=== PATIENT | male | born 1930 | race Asian ===

== ENCOUNTER 2016-07-03 03:57 | Inpatient (IN) | payer MEDICARE ==
[~2016-07-03] VITALS: Ht 165.1 cm; Wt 73.2 kg
[~2016-07-03 03:57] MED LIST: ALLO100T PO; AMLO10TA55 PO; ASPI81TA2 PO; FAMO40TA76 PO; FURO20TA4 PO; HYDR-3112 PO; ISOS30TA6 PO; METO50TA5 PO; SIMV20TA6 PO
[2016-07-03] MEDS ORDERED: MIDAZOLAM HCL 2 MG/2 ML VIAL IVP ONE (04:41)
[2016-07-03] MEDS ORDERED: ROCURONIUM BROMIDE 10 MG/ML 5 ML VIAL IVP ONE (04:41)
[2016-07-03] MEDS ORDERED: PHENYLEPHRINE HCL 10 MG/ML VIAL IVP ONE (04:41)
[2016-07-03] MEDS ORDERED: LIDOCAINE HCL/PF 2% 5 ML VIAL IM ONE (04:41)
[2016-07-03] MEDS ORDERED: EPHEDrine SULFATE 50 MG/ML VIAL IM ONE (04:41)
[2016-07-03] MEDS ORDERED: 0.9% SODIUM CHLORIDE 10 ML VIAL IVP ONE (04:41)
[2016-07-03] MEDS ORDERED: FentaNYL CITRATE-PF 100 MCG/2 ML VIAL IVP ONE (04:41)
[2016-07-03] MEDS ORDERED: SUCCINYLCHOLINE CHLORIDE 20 MG/ML 10 ML VIAL IVP ONE (04:41)
[2016-07-03] MEDS ORDERED: ETOMIDATE 2 MG/ML 10 ML VIAL IVP ONE (04:41)
[2016-07-03] MEDS ORDERED: HYDROmorphone 2 MG/ML SYRINGE IVP ONE (04:41)
[2016-07-03] MEDS ORDERED: NITROGLYCERIN 0.4 MG SUBLINGUAL TABLET #25 SL ONE (04:45)
[2016-07-03] MEDS ORDERED: ASPIRIN 325 MG TABLET PO ONE (04:45)
[2016-07-03 04:50] LABS: BASOPHILS % (AUTO) 1.3 % (0.0-2.0); EOSINOPHILS % (AUTO) 0.2 % (1.0-6.0); HEMATOCRIT 34.7 % (41-53); HEMOGLOBIN 11.5 g/dL (13.5-17.5); LYMPHOCYTES # (AUTO) 0.7 K/uL (1.0-4.8); LYMPHOCYTES % (AUTO) 6.9 % (22.0-44.0); MEAN CORPUSCULAR HEMOGLOBIN 31.2 pg (26.0-34.0); MEAN CORPUSCULAR HGB CONC 33.1 G/dL (31.0-37.0); MEAN CORPUSCULAR VOLUME 94 fL (80-100); MONOCYTES # (AUTO) 0.2 K/uL (0.1-1.0); MONOCYTES % (AUTO) 1.7 % (2.0-9.0); NEUTROPHILS # (AUTO) 8.9 K/uL (1.8-7.7); PLATELET COUNT (AUTO) 146 K/uL (150-450); RED BLOOD CELL COUNT(AUTO) 3.69 MIL/uL (4.50-5.90); RED CELL DISTRIBUTION WIDTH 13.7 % (11.5-14.5); WHITE BLOOD COUNT (AUTO) 9.9 K/uL (4.5-11.0)
[2016-07-03 04:52] LABS: NEUTROPHILS % (AUTO) 89.9 % (40.0-70.0)
[2016-07-03 05:00] LABS: INR 1.1 (0.9-1.1); PROTHROMBIN TIME 11.4 SEC (9.4-11.6)
[2016-07-03 05:04] LABS: ANION GAP 16 mmol/L (8-16); CALCIUM, TOTAL 9.3 mg/dL (8.8-10.5); CARBON DIOXIDE 22 mmol/L (22-29); CHLORIDE 100 mmol/L (98-107); CREATININE 2.77 mg/dL (0.60-1.30); GLOMERULAR FILTR. RATE CALC 22 mL/min (>60); POTASSIUM 5.1 mmol/L (3.5-5.1); SODIUM SERUM 138 mmol/L (136-145); UREA NITROGEN, BLOOD 43 mg/dL (7-18)
[2016-07-03 05:16] LABS: B-TYPE NATRIURETIC PEPTIDE 304 pg/mL (0-100)
[2016-07-03 05:29] LABS: ALANINE AMINOTRANSFERASE 121 U/L (12-78); ALBUMIN 3.5 g/dL (3.4-5.0); ASPARTATE AMINOTRANSFERASE 149 U/L (15-37); CREATINE KINASE MB 3.5 ng/mL (0-5); CREATINE KINASE, TOTAL 231 U/L (39-308)
[2016-07-03] MEDS ORDERED: NITROGLYCERIN 2% (1 GM=INCH) PACKET TP ONE (05:45)
[2016-07-03] MEDS ORDERED: FUROSEMIDE 40 MG/4 ML VIAL IVP ONE (05:45)
[2016-07-03] MEDS: NOREPINEPHRINE 4 MG/D5%-WATER 250 ML IV PRN (06:40)
[2016-07-03] MEDS ORDERED: SODIUM CHLORIDE 0.9% 1,000 ML IV ONE ×3 (07:15→10:15)
[2016-07-03] MEDS ORDERED: PIPERACILLIN/TAZO 3.375 GM/D5W 50 ML IV ONE (07:15)
[2016-07-03] MEDS ORDERED: MetroNIDAZOLE 500 MG/NACL 100 ML IV ONE (07:15)
[2016-07-03 07:18] LABS: APPEARANCE,URINE CLOUDY (CLEAR); GLUCOSE, URINE (UA) NEGATIVE (NEGATIVE); KETONES,URINE NEGATIVE (NEGATIVE); LEUKOCYTE ESTERASE ,URINE NEGATIVE (NEGATIVE); OCCULT BLOOD,URINE SMALL (NEGATIVE); PH,URINE 5.5 (5.0-8.0); PROTEIN,URINE SEE CONFIRM (NEGATIVE)
[2016-07-03 07:20] LABS: ADD UA MICROSCOPIC YES
[2016-07-03 07:26] LABS: SQUAMOUS EPITHELIAL CELL,UR Few /LPF (None Seen); WBC,URINE 0-2 /HPF (0-5)
[2016-07-03 07:29] LABS: SULFOSALICYLIC ACID,URINE 3+ (Negative)
[2016-07-03] MEDS ORDERED: ONDANSETRON HCL 4 MG/2 ML VIAL IVP PRN (07:45)
[2016-07-03] MEDS ORDERED: MORPHINE SULFATE 4 MG/ML SYRINGE IVP PRN (07:45)
[2016-07-03 09:37] LABS: REFLEX LACTIC ACID? YES YES
[2016-07-03 13:20] VITALS: BP 145/72
[2016-07-03] MEDS ORDERED: *CLINICAL-RX DOSING [ENTER DRUG IN COMMENTS] CLINICAL ONE (13:45)
[2016-07-03 13:49] LABS: EOSINOPHILS % (AUTO) 0 % (1.0-6.0); HEMATOCRIT 38.5 % (41-53); HEMOGLOBIN 12.5 g/dL (13.5-17.5); LYMPHOCYTES # (AUTO) 0.2 K/uL (1.0-4.8); LYMPHOCYTES % (AUTO) 5.4 % (22.0-44.0); MEAN CORPUSCULAR HEMOGLOBIN 30.8 pg (26.0-34.0); MEAN CORPUSCULAR HGB CONC 32.4 G/dL (31.0-37.0); MEAN CORPUSCULAR VOLUME 95 fL (80-100); MONOCYTES # (AUTO) 0.1 K/uL (0.1-1.0); MONOCYTES % (AUTO) 2.6 % (2.0-9.0); PLATELET COUNT (AUTO) 125 K/uL (150-450); RED BLOOD CELL COUNT(AUTO) 4.04 MIL/uL (4.50-5.90); RED CELL DISTRIBUTION WIDTH 13.6 % (11.5-14.5); WHITE BLOOD COUNT (AUTO) 4.4 K/uL (4.5-11.0)
[2016-07-03 13:58] LABS: ABG A-A DIFF O2 39.8 mmHg (10-20.0); ABG BASE EXCESS -3.1 mmol/L (-2.0-3.0); ABG HCO3 22.8 mmol/L (22.0-26.0); ABG OXYHEMOGLOBIN 94.1 % (94.0-100.0); ABG PCO2 29 mmHg (35-45); ABG PH 7.464 (7.35-7.450); TEMPERATURE, FAHRENHEIT, BG 98.6 FAHREN (96.0-98.6)
[2016-07-03 13:59] LABS: CALCIUM, TOTAL 8.7 mg/dL (8.8-10.5); CREATININE 2.36 mg/dL (0.60-1.30); POTASSIUM 4.8 mmol/L (3.5-5.1)
[2016-07-03 13:59] LABS: ALLEN TEST, BLOOD GAS Positive
[2016-07-03 14:06] LABS: ALBUMIN 3.4 g/dL (3.4-5.0); BILIRUBIN,TOTAL 1.2 mg/dL (0.1-1.0); MAGNESIUM 2.4 mg/dL (1.80-2.40); PHOSPHORUS 4.8 mg/dL (2.5-4.9); TOTAL PROTEIN, SERUM 6.4 g/dL (6.4-8.2)
[2016-07-03] MEDS: MORPHINE SULFATE 2 MG/ML SYRINGE IVP PRN (15:01)
[2016-07-03] MEDS: PANTOPRAZOLE SODIUM 40 MG/VIAL IVP SCH (15:02)
[2016-07-03 16:00] VITALS: BP 151/75
[2016-07-03] MEDS: SODIUM CHLORIDE 0.9% 1,000 ML IV SCH (17:03)
[2016-07-03] MEDS: PIPERACILLIN SODIUM/TAZOBACTAM 2.25 GM in DEXTROSE 5%-WATER 50 ML IV SCH (17:19)
[2016-07-03] MEDS ORDERED: LORazepam 2 MG/ML VIAL IVP PRN (17:30)
[2016-07-03] MEDS: MetroNIDAZOLE 500 MG/NACL 100 ML IV SCH (17:45)
[2016-07-03 19:05] LABS: ABG A-A DIFF O2 85.2 mmHg (10-20.0); ABG BASE EXCESS -5.5 mmol/L (-2.0-3.0); ABG HCO3 21.1 mmol/L (22.0-26.0); ABG OXYHEMOGLOBIN 93.8 % (94.0-100.0); ABG PCO2 28 mmHg (35-45); ABG PH 7.434 (7.35-7.450); TEMPERATURE, FAHRENHEIT, BG 101.6 FAHREN (96.0-98.6)
[2016-07-03 19:06] LABS: ALLEN TEST, BLOOD GAS POS
[2016-07-03] MEDS ORDERED: ACETAMINOPHEN 650 MG RECTAL SUPPOSITORY PR PRN (19:30)
[2016-07-03 20:00] VITALS: BP 109/65
[2016-07-03] MEDS ORDERED: SODIUM CHLORIDE 0.9% 500 ML IV ONE (20:20)
[2016-07-03] MEDS ORDERED: 0.9% SODIUM CHLORIDE 10 ML SYRINGE IVP PRN (22:00)
[2016-07-03] MEDS: PHENYLEPHRINE 200 MG/D5%-WATER 250 ML IV PRN (23:30)
[2016-07-03] MEDS ORDERED: DOPamine HCL 400 MG/D5%-WATER 250 ML IV ONE (23:38)
[2016-07-03] MEDS ORDERED: EPINEPHrine 1:10,000 [1 MG/10 ML] SYRINGE ONE (23:39)
[2016-07-04] VITALS (10 sets, daily range): BP systolic 100–146; BP diastolic 38–53
[2016-07-04 00:10] LABS: BASOPHILS % (AUTO) 0.4 % (0.0-2.0); EOSINOPHILS % (AUTO) 0.1 % (1.0-6.0); HEMATOCRIT 33.1 % (41-53); HEMOGLOBIN 10.9 g/dL (13.5-17.5); LYMPHOCYTES # (AUTO) 0.4 K/uL (1.0-4.8); LYMPHOCYTES % (AUTO) 4.9 % (22.0-44.0); MEAN CORPUSCULAR HEMOGLOBIN 31.1 pg (26.0-34.0); MEAN CORPUSCULAR VOLUME 94 fL (80-100); MONOCYTES # (AUTO) 0.2 K/uL (0.1-1.0); MONOCYTES % (AUTO) 2.3 % (2.0-9.0); NEUTROPHILS # (AUTO) 6.8 K/uL (1.8-7.7); PLATELET COUNT (AUTO) 103 K/uL (150-450); RED CELL DISTRIBUTION WIDTH 14.2 % (11.5-14.5); WHITE BLOOD COUNT (AUTO) 7.4 K/uL (4.5-11.0)
[2016-07-04 00:11] LABS: NEUTROPHILS % (AUTO) 92.3 % (40.0-70.0)
[2016-07-04 00:15] LABS: CALCIUM, TOTAL 6.9 mg/dL (8.8-10.5); CREATININE 2.61 mg/dL (0.60-1.30); POTASSIUM 4.6 mmol/L (3.5-5.1)
[2016-07-04] MEDS: SODIUM CHLORIDE 0.9% 1,000 ML IV SCH ×2 (00:21→22:26)
[2016-07-04] MEDS: PIPERACILLIN SODIUM/TAZOBACTAM 2.25 GM in DEXTROSE 5%-WATER 50 ML IV SCH ×3 (00:21→15:58)
[2016-07-04 00:53] LABS: ABG A-A DIFF O2 345.6 mmHg (10-20.0); ABG BASE EXCESS -9.9 mmol/L (-2.0-3.0); ABG HCO3 17.1 mmol/L (22.0-26.0); ABG OXYHEMOGLOBIN 98.8 % (94.0-100.0); ABG PCO2 39 mmHg (35-45); ABG PH 7.264 (7.35-7.450); TEMPERATURE, FAHRENHEIT, BG 98.5 FAHREN (96.0-98.6)
[2016-07-04 00:54] LABS: ALLEN TEST, BLOOD GAS POS
[2016-07-04] MEDS: MetroNIDAZOLE 500 MG/NACL 100 ML IV SCH ×3 (01:19→17:28)
[2016-07-04] MEDS ORDERED: NOREPINEPHRINE 4 MG/D5%-WATER 250 ML IV PRN (01:32)
[2016-07-04] MEDS ORDERED: DOPamine HCL 400 MG/D5%-WATER 250 ML IV PRN (01:32)
[2016-07-04] MEDS ORDERED: PHENYLEPHRINE 200 MG/D5%-WATER 250 ML IV PRN (01:32)
[2016-07-04 05:29] LABS: HEMATOCRIT 34.9 % (41-53); HEMOGLOBIN 11.4 g/dL (13.5-17.5); MEAN CORPUSCULAR HEMOGLOBIN 31.1 pg (26.0-34.0); MEAN CORPUSCULAR HGB CONC 32.7 G/dL (31.0-37.0); MEAN CORPUSCULAR VOLUME 95 fL (80-100); PLATELET COUNT (AUTO) 107 K/uL (150-450); RED BLOOD CELL COUNT(AUTO) 3.67 MIL/uL (4.50-5.90); RED CELL DISTRIBUTION WIDTH 14.6 % (11.5-14.5); WHITE BLOOD COUNT (AUTO) 9.7 K/uL (4.5-11.0)
[2016-07-04 05:51] LABS: ALBUMIN 2.3 g/dL (3.4-5.0); CALCIUM, TOTAL 7.1 mg/dL (8.8-10.5); CREATININE 2.62 mg/dL (0.60-1.30); MAGNESIUM 2.2 mg/dL (1.80-2.40); PHOSPHORUS 5.9 mg/dL (2.5-4.9); POTASSIUM 5.4 mmol/L (3.5-5.1); THYROID STIMULATING HORMONE 3.76 uIU/mL (0.36-3.74); TOTAL PROTEIN, SERUM 4.9 g/dL (6.4-8.2)
[2016-07-04] MEDS: NOREPINEPHRINE 4 MG/D5%-WATER 250 ML IV PRN ×3 (07:36→21:14)
[2016-07-04] MEDS: ASPIRIN 81 MG CHEWABLE TABLET PO SCH (09:00)
[2016-07-04 09:29] LABS: LYMPHOCYTES % (MANUAL) 9 % (22-44); TOTAL CELLS COUNTED 100
[2016-07-04 09:31] LABS: BAND NEUTROPHILS % (MANUAL) 80 % (1-5)
[2016-07-04 09:32] LABS: RBC MORPHOLOGY COMMENT ABNORMAL RBC MORPH
[2016-07-04] MEDS: PANTOPRAZOLE SODIUM 40 MG/VIAL IVP SCH (09:38)
[2016-07-04] MEDS: MORPHINE SULFATE 4 MG/ML SYRINGE IVP PRN (09:39)
[2016-07-04 10:02] LABS: APPEARANCE,URINE CLOUDY (CLEAR); GLUCOSE, URINE (UA) NEGATIVE (NEGATIVE); OCCULT BLOOD,URINE LARGE (NEGATIVE); PROTEIN,URINE SEE CONFIRM (NEGATIVE)
[2016-07-04 10:03] LABS: ADD UA MICROSCOPIC YES; KETONES,URINE NEGATIVE (NEGATIVE); LEUKOCYTE ESTERASE ,URINE NEGATIVE (NEGATIVE)
[2016-07-04 10:09] LABS: RBC,URINE >100 /HPF (0-2); SULFOSALICYLIC ACID,URINE 3+ (Negative)
[2016-07-04 10:11] LABS: SQUAMOUS EPITHELIAL CELL,UR Rare /LPF (None Seen)
[2016-07-04 10:12] LABS: URINALYSIS COMMENT Few Sperm seen.
[2016-07-04 10:13] LABS: ABG A-A DIFF O2 112.8 mmHg (10-20.0); ABG BASE EXCESS -4.7 mmol/L (-2.0-3.0); ABG HCO3 21.4 mmol/L (22.0-26.0); ABG OXYHEMOGLOBIN 96.7 % (94.0-100.0); ABG PCO2 30 mmHg (35-45); ABG PH 7.428 (7.35-7.450); TEMPERATURE, FAHRENHEIT, BG 98.6 FAHREN (96.0-98.6)
[2016-07-04 10:15] LABS: COARSE GRANULAR CASTS,URINE 0-2 /LPF (None Seen); HYALINE CASTS, URINE 0-2 /LPF (None Seen)
[2016-07-04] MEDS ORDERED: HEPARIN SODIUM,PORCINE 5,000 UNITS/ML VIAL IVP ONE (17:30)
[2016-07-04] MEDS ORDERED: HEPARIN SODIUM,PORCINE 5,000 UNITS/ML VIAL IVP PRN ×2 (17:30)
[2016-07-04 17:53] LABS: INR 1.5 (0.9-1.1); PROTHROMBIN TIME 15.9 SEC (9.4-11.6)
[2016-07-04] MEDS: HEPARIN SODIUM 25000 UNITS/D5W 250 ML IV PRN (18:23)
[2016-07-04] MEDS ORDERED: INFLUENZA VIRUS VACCINE QVS 2016-17 (3YR+)/PF 60 MCG/0.5 ML SYRINGE IM ONE (19:30)
[2016-07-04] MEDS: ATORVASTATIN CALCIUM 10 MG TABLET PO SCH (21:00)
[2016-07-04] MEDS: PROPOFOL 1000 MG/ISO-OSM 100 ML IV PRN (21:14)
[2016-07-04] MEDS: MORPHINE SULFATE 2 MG/ML SYRINGE IVP PRN (21:39)
[2016-07-04] MEDS ORDERED: AMIODARONE HCL 360 MG in DEXTROSE 5%-WATER 242.8 ML IV ONE (22:15)
[2016-07-04] MEDS ORDERED: AMIODARONE HCL 50 MG in DEXTROSE 5%-WATER 97 ML IV ONE (22:15)
[2016-07-04] MEDS ORDERED: DIGOXIN 250 MCG/ML 2 ML AMP IVP ONE (22:15)
[2016-07-05] VITALS: BP 115/41
[2016-07-05] MEDS: PIPERACILLIN SODIUM/TAZOBACTAM 2.25 GM in DEXTROSE 5%-WATER 50 ML IV SCH ×4 (00:34→23:53)
[2016-07-05] MEDS: MetroNIDAZOLE 500 MG/NACL 100 ML IV SCH ×3 (01:44→17:35)
[2016-07-05] MEDS: NOREPINEPHRINE 4 MG/D5%-WATER 250 ML IV PRN ×2 (03:43→13:46)
[2016-07-05] MEDS: PHENYLEPHRINE 200 MG/D5%-WATER 250 ML IV PRN (03:50)
[2016-07-05 04:00] VITALS: BP 135/51
[2016-07-05] MEDS ORDERED: AMIODARONE HCL 540 MG in DEXTROSE 5%-WATER 239.2 ML IV ONE (04:15)
[2016-07-05 05:13] LABS: BASOPHILS % (AUTO) 0.2 % (0.0-2.0); EOSINOPHILS % (AUTO) 0.5 % (1.0-6.0); HEMATOCRIT 31.9 % (41-53); HEMOGLOBIN 10.4 g/dL (13.5-17.5); LYMPHOCYTES # (AUTO) 0.7 K/uL (1.0-4.8); LYMPHOCYTES % (AUTO) 4.3 % (22.0-44.0); MEAN CORPUSCULAR HEMOGLOBIN 31.2 pg (26.0-34.0); MEAN CORPUSCULAR HGB CONC 32.8 G/dL (31.0-37.0); MEAN CORPUSCULAR VOLUME 95 fL (80-100); MONOCYTES # (AUTO) 0.5 K/uL (0.1-1.0); NEUTROPHILS # (AUTO) 14.1 K/uL (1.8-7.7); PLATELET COUNT (AUTO) 87 K/uL (150-450); RED BLOOD CELL COUNT(AUTO) 3.35 MIL/uL (4.50-5.90); RED CELL DISTRIBUTION WIDTH 15.1 % (11.5-14.5); WHITE BLOOD COUNT (AUTO) 15.3 K/uL (4.5-11.0)
[2016-07-05 05:58] LABS: ALBUMIN 1.9 g/dL (3.4-5.0); BILIRUBIN,TOTAL 1.4 mg/dL (0.1-1.0); CALCIUM, TOTAL 7.3 mg/dL (8.8-10.5); CREATININE 2.79 mg/dL (0.60-1.30); MAGNESIUM 2.1 mg/dL (1.80-2.40); TOTAL PROTEIN, SERUM 4.6 g/dL (6.4-8.2)
[2016-07-05 07:20] LABS: POTASSIUM 4.5 mmol/L (3.5-5.1)
[2016-07-05 08:00] VITALS: BP 164/56
[2016-07-05] MEDS ORDERED: DIGOXIN 250 MCG/ML 2 ML AMP IVP ONE (08:00)
[2016-07-05] MEDS: HEPARIN SODIUM 25000 UNITS/D5W 250 ML IV PRN (08:14)
[2016-07-05] MEDS: PANTOPRAZOLE SODIUM 40 MG/VIAL IVP SCH (08:15)
[2016-07-05] MEDS: MORPHINE SULFATE 2 MG/ML SYRINGE IVP SCH ×8 (09:55→23:03)
[2016-07-05] MEDS: ASPIRIN 81 MG CHEWABLE TABLET PO SCH (09:56)
[2016-07-05] MEDS ORDERED: FUROSEMIDE 40 MG/4 ML VIAL IVP ONE (10:30)
[2016-07-05 10:56] LABS: ABG A-A DIFF O2 64.3 mmHg (10-20.0); ABG BASE EXCESS -6.4 mmol/L (-2.0-3.0); ABG HCO3 20.1 mmol/L (22.0-26.0); ABG OXYHEMOGLOBIN 97.5 % (94.0-100.0); ABG PCO2 29 mmHg (35-45); ABG PH 7.411 (7.35-7.450); TEMPERATURE, FAHRENHEIT, BG 98.6 FAHREN (96.0-98.6)
[2016-07-05 12:00] VITALS: BP 134/51
[2016-07-05] MEDS: PROPOFOL 1000 MG/ISO-OSM 100 ML IV PRN (13:47)
[2016-07-05 14:03] LABS: HEMATOCRIT 31.1 % (41-53)
[2016-07-05 16:00] VITALS: BP 150/55
[2016-07-05] MEDS ORDERED: SODIUM CHLORIDE 0.9% 500 ML IV ONE (16:02)
[2016-07-05 20:00] VITALS: BP 112/40
[2016-07-05] MEDS: ATORVASTATIN CALCIUM 10 MG TABLET PO SCH (20:53)
[2016-07-05] MEDS: SODIUM CHLORIDE 0.9% 1,000 ML IV SCH (21:18)
[2016-07-05] MEDS: AMIODARONE HCL 750 MG in DEXTROSE 5%-WATER 485 ML IV SCH (22:59)
[2016-07-06] VITALS: BP 124/51
[2016-07-06] MEDS: MetroNIDAZOLE 500 MG/NACL 100 ML IV SCH ×3 (01:05→17:07)
[2016-07-06] MEDS: MORPHINE SULFATE 2 MG/ML SYRINGE IVP SCH ×12 (01:10→23:02)
[2016-07-06] MEDS: PROPOFOL 1000 MG/ISO-OSM 100 ML IV PRN ×2 (01:18→08:50)
[2016-07-06] MEDS: NOREPINEPHRINE 4 MG/D5%-WATER 250 ML IV PRN (03:04)
[2016-07-06 04:00] VITALS: BP 99/42
[2016-07-06] MEDS: MORPHINE SULFATE 4 MG/ML SYRINGE IVP PRN (04:45)
[2016-07-06 06:27] LABS: ALBUMIN 1.6 g/dL (3.4-5.0); BILIRUBIN,TOTAL 1.9 mg/dL (0.1-1.0); CALCIUM, TOTAL 7.4 mg/dL (8.8-10.5); CREATININE 2.46 mg/dL (0.60-1.30); MAGNESIUM 1.9 mg/dL (1.80-2.40); POTASSIUM 3.6 mmol/L (3.5-5.1); TOTAL PROTEIN, SERUM 4.4 g/dL (6.4-8.2)
[2016-07-06 06:34] LABS: BASOPHILS % (AUTO) 0.2 % (0.0-2.0); EOSINOPHILS % (AUTO) 2.2 % (1.0-6.0); HEMATOCRIT 29.2 % (41-53); HEMOGLOBIN 9.5 g/dL (13.5-17.5); LYMPHOCYTES # (AUTO) 0.5 K/uL (1.0-4.8); LYMPHOCYTES % (AUTO) 4.5 % (22.0-44.0); MEAN CORPUSCULAR HEMOGLOBIN 31.3 pg (26.0-34.0); MEAN CORPUSCULAR HGB CONC 32.5 G/dL (31.0-37.0); MEAN CORPUSCULAR VOLUME 96 fL (80-100); MONOCYTES # (AUTO) 0.2 K/uL (0.1-1.0); MONOCYTES % (AUTO) 1.8 % (2.0-9.0); PLATELET COUNT (AUTO) 77 K/uL (150-450); RED BLOOD CELL COUNT(AUTO) 3.02 MIL/uL (4.50-5.90); RED CELL DISTRIBUTION WIDTH 14.9 % (11.5-14.5)
[2016-07-06 07:01] LABS: NEUTROPHILS % (AUTO) 91.3 % (40.0-70.0)
[2016-07-06 08:00] VITALS: BP 124/51
[2016-07-06] MEDS ORDERED: FUROSEMIDE 40 MG/4 ML VIAL IVP ONE (08:30)
[2016-07-06] MEDS: ASPIRIN 81 MG CHEWABLE TABLET PO SCH (08:50)
[2016-07-06] MEDS: PANTOPRAZOLE SODIUM 40 MG/VIAL IVP SCH (08:50)
[2016-07-06] MEDS: PIPERACILLIN SODIUM/TAZOBACTAM 2.25 GM in DEXTROSE 5%-WATER 50 ML IV SCH ×2 (08:52→15:59)
[2016-07-06 12:00] VITALS: BP 176/58
[2016-07-06 12:50] LABS: ABG A-A DIFF O2 82.3 mmHg (10-20.0); ABG BASE EXCESS -4.4 mmol/L (-2.0-3.0); ABG HCO3 21.6 mmol/L (22.0-26.0); ABG OXYHEMOGLOBIN 95.2 % (94.0-100.0); ABG PCO2 33 mmHg (35-45); ABG PH 7.404 (7.35-7.450); TEMPERATURE, FAHRENHEIT, BG 98.6 FAHREN (96.0-98.6)
[2016-07-06 16:00] VITALS: BP 112/43
[2016-07-06] MEDS: SODIUM CHLORIDE 0.9% 1,000 ML IV SCH (17:08)
[2016-07-06 20:00] VITALS: BP 152/51
[2016-07-06] MEDS: ATORVASTATIN CALCIUM 10 MG TABLET PO SCH (21:01)
[2016-07-06] MEDS: AMIODARONE HCL 750 MG in DEXTROSE 5%-WATER 485 ML IV SCH (23:03)
[2016-07-07] VITALS: BP 116/97
[2016-07-07] MEDS: PIPERACILLIN SODIUM/TAZOBACTAM 2.25 GM in DEXTROSE 5%-WATER 50 ML IV SCH ×3 (00:02→16:00)
[2016-07-07] MEDS: MORPHINE SULFATE 2 MG/ML SYRINGE IVP SCH ×6 (01:21→11:00)
[2016-07-07] MEDS: MetroNIDAZOLE 500 MG/NACL 100 ML IV SCH ×3 (01:21→17:00)
[2016-07-07 04:00] VITALS: BP 119/40
[2016-07-07] MEDS ORDERED: SODIUM CHLORIDE 0.9% 500 ML IV ONE (06:51)
[2016-07-07 07:04] LABS: EOSINOPHILS % (AUTO) 1.6 % (1.0-6.0); HEMATOCRIT 29.3 % (41-53); HEMOGLOBIN 9.6 g/dL (13.5-17.5); LYMPHOCYTES # (AUTO) 0.3 K/uL (1.0-4.8); LYMPHOCYTES % (AUTO) 3.5 % (22.0-44.0); MEAN CORPUSCULAR HEMOGLOBIN 31.2 pg (26.0-34.0); MEAN CORPUSCULAR HGB CONC 32.8 G/dL (31.0-37.0); MEAN CORPUSCULAR VOLUME 95 fL (80-100); MONOCYTES # (AUTO) 0.3 K/uL (0.1-1.0); MONOCYTES % (AUTO) 2.9 % (2.0-9.0); NEUTROPHILS # (AUTO) 9.2 K/uL (1.8-7.7); PLATELET COUNT (AUTO) 74 K/uL (150-450); RED BLOOD CELL COUNT(AUTO) 3.09 MIL/uL (4.50-5.90)
[2016-07-07 08:00] VITALS: BP 118/63
[2016-07-07] MEDS: PANTOPRAZOLE SODIUM 40 MG/VIAL IVP SCH (08:15)
[2016-07-07] MEDS: ASPIRIN 81 MG CHEWABLE TABLET PO SCH (08:15)
[2016-07-07] MEDS: PROPOFOL 1000 MG/ISO-OSM 100 ML IV PRN (08:15)
[2016-07-07 09:55] LABS: CALCIUM, TOTAL 7.7 mg/dL (8.8-10.5); CREATININE 2.39 mg/dL (0.60-1.30)
[2016-07-07 10:10] LABS: POTASSIUM 3.6 mmol/L (3.5-5.1)
[2016-07-07] MEDS: AMIODARONE HCL 200 MG TABLET PO SCH ×2 (11:00→21:44)
[2016-07-07 12:00] VITALS: BP 112/50
[2016-07-07] MEDS ORDERED: FUROSEMIDE 40 MG/4 ML VIAL IVP ONE (13:00)
[2016-07-07] MEDS: FentaNYL CITRATE PF 500 MCG in DEXTROSE 5%-WATER 90 ML IV PRN (13:00)
[2016-07-07 16:00] VITALS: BP 154/74
[2016-07-07 20:00] VITALS: BP 112/71
[2016-07-07] MEDS: ATORVASTATIN CALCIUM 10 MG TABLET PO SCH (21:44)
[2016-07-08] VITALS (7 sets, daily range): BP systolic 102–133; BP diastolic 49–78
[2016-07-08] MEDS: PIPERACILLIN SODIUM/TAZOBACTAM 2.25 GM in DEXTROSE 5%-WATER 50 ML IV SCH ×4 (00:18→19:40)
[2016-07-08] MEDS ORDERED: SODIUM CHLORIDE 0.9% 500 ML IV ONE (01:08)
[2016-07-08] MEDS ORDERED: SODIUM CHLORIDE 0.9% 250 ML IV ONE (01:08)
[2016-07-08] MEDS: MetroNIDAZOLE 500 MG/NACL 100 ML IV SCH ×3 (01:11→17:50)
[2016-07-08] MEDS: FentaNYL CITRATE PF 500 MCG in DEXTROSE 5%-WATER 90 ML IV PRN (01:12)
[2016-07-08] MEDS: PROPOFOL 1000 MG/ISO-OSM 100 ML IV PRN (05:16)
[2016-07-08 06:29] LABS: CALCIUM, TOTAL 7.6 mg/dL (8.8-10.5); CREATININE 2.05 mg/dL (0.60-1.30); POTASSIUM 3.1 mmol/L (3.5-5.1)
[2016-07-08 07:07] LABS: BASOPHILS # (AUTO) 0.01 K/uL (0.00-0.20); BASOPHILS % (AUTO) 0.2 % (0.0-2.0); EOSINOPHILS # (AUTO) 0.12 K/uL (0.00-0.70); EOSINOPHILS % (AUTO) 1.48 % (1.0-6.0); HEMATOCRIT 27.9 % (41-53); HEMOGLOBIN 9.7 g/dL (13.5-17.5); LYMPHOCYTES # (AUTO) 0.4 K/uL (1.0-4.8); LYMPHOCYTES % (AUTO) 4.6 % (22.0-44.0); MEAN CORPUSCULAR HEMOGLOBIN 32.4 pg (26.0-34.0); MEAN CORPUSCULAR HGB CONC 34.6 G/dL (31.0-37.0); MEAN CORPUSCULAR VOLUME 93 fL (80-100); MONOCYTES # (AUTO) 0.4 K/uL (0.1-1.0); MONOCYTES % (AUTO) 4.5 % (2.0-9.0); NEUTROPHILS # (AUTO) 7.2 K/uL (1.8-7.7); PLATELET COUNT (AUTO) 88 K/uL (150-450); RED BLOOD CELL COUNT(AUTO) 2.98 MIL/uL (4.50-5.90); RED CELL DISTRIBUTION WIDTH 14.8 % (11.5-14.5); WHITE BLOOD COUNT (AUTO) 8.1 K/uL (4.5-11.0)
[2016-07-08 07:08] LABS: NEUTROPHILS % (AUTO) 89.3 % (40.0-70.0)
[2016-07-08] MEDS ORDERED: POTASSIUM CHL 10 MEQ/WATER 50 ML IV ONE (08:30)
[2016-07-08] MEDS ORDERED: HEPARIN SODIUM,PORCINE 5,000 UNITS/ML VIAL IVP PRN ×3 (08:30→08:51)
[2016-07-08] MEDS ORDERED: HEPARIN SODIUM,PORCINE 5,000 UNITS/ML VIAL IVP ONE (08:30)
[2016-07-08 09:08] LABS: INR 1.5 (0.9-1.1); PROTHROMBIN TIME 15.4 SEC (9.4-11.6)
[2016-07-08] MEDS: AMIODARONE HCL 200 MG TABLET PO SCH ×2 (09:18→20:25)
[2016-07-08] MEDS: POTASSIUM CHL 10 MEQ/WATER 50 ML IV SCH ×4 (09:18→14:21)
[2016-07-08] MEDS: PANTOPRAZOLE SODIUM 40 MG/VIAL IVP SCH (09:18)
[2016-07-08] MEDS: ASPIRIN 81 MG CHEWABLE TABLET PO SCH (09:18)
[2016-07-08] MEDS: HEPARIN SODIUM 25000 UNITS/D5W 250 ML IV PRN (09:21)
[2016-07-08] MEDS ORDERED: LORazepam 2 MG/ML VIAL IM PRN (10:30)
[2016-07-08] MEDS ORDERED: LORazepam 2 MG/ML VIAL IVP PRN (11:30)
[2016-07-08 12:06] LABS: ABG A-A DIFF O2 71.8 mmHg (10-20.0); ABG BASE EXCESS 1.9 mmol/L (-2.0-3.0); ABG HCO3 26.2 mmol/L (22.0-26.0); ABG OXYHEMOGLOBIN 96.1 % (94.0-100.0); ABG PCO2 38 mmHg (35-45); ABG PH 7.451 (7.35-7.450); ALLEN TEST, BLOOD GAS Positive; TEMPERATURE, FAHRENHEIT, BG 98.6 FAHREN (96.0-98.6)
[2016-07-08] MEDS: MORPHINE SULFATE 4 MG/ML SYRINGE IVP PRN (17:51)
[2016-07-08] MEDS: ATORVASTATIN CALCIUM 10 MG TABLET PO SCH (20:25)
[2016-07-08] MEDS: LORazepam 2 MG/ML VIAL IVP PRN (21:32)
[2016-07-09] VITALS (8 sets, daily range): BP systolic 97–147; BP diastolic 56–84
[2016-07-09] MEDS ORDERED: PNEUMOCOCCAL VACCINE POLYVALENT 0.5 ML VIAL [PPSV23] IM ONE (00:15)
[2016-07-09] MEDS: PIPERACILLIN SODIUM/TAZOBACTAM 2.25 GM in DEXTROSE 5%-WATER 50 ML IV SCH ×4 (00:32→18:55)
[2016-07-09] MEDS: MetroNIDAZOLE 500 MG/NACL 100 ML IV SCH ×3 (00:33→16:57)
[2016-07-09] MEDS: MORPHINE SULFATE 4 MG/ML SYRINGE IVP PRN (02:09)
[2016-07-09] MEDS ORDERED: SODIUM CHLORIDE 0.9% 250 ML IV ONE ×2 (05:13→23:05)
[2016-07-09 05:37] LABS: EOSINOPHILS % (AUTO) 1.6 % (1.0-6.0); HEMOGLOBIN 10.4 g/dL (13.5-17.5); LYMPHOCYTES # (AUTO) 0.5 K/uL (1.0-4.8); LYMPHOCYTES % (AUTO) 4.9 % (22.0-44.0); MEAN CORPUSCULAR HEMOGLOBIN 30.8 pg (26.0-34.0); MEAN CORPUSCULAR HGB CONC 32.6 G/dL (31.0-37.0); MEAN CORPUSCULAR VOLUME 95 fL (80-100); MONOCYTES # (AUTO) 0.4 K/uL (0.1-1.0); MONOCYTES % (AUTO) 3.6 % (2.0-9.0); NEUTROPHILS # (AUTO) 9.5 K/uL (1.8-7.7); PLATELET COUNT (AUTO) 122 K/uL (150-450); RED BLOOD CELL COUNT(AUTO) 3.39 MIL/uL (4.50-5.90); RED CELL DISTRIBUTION WIDTH 15.7 % (11.5-14.5); WHITE BLOOD COUNT (AUTO) 10.6 K/uL (4.5-11.0)
[2016-07-09 05:40] LABS: NEUTROPHILS % (AUTO) 89.9 % (40.0-70.0)
[2016-07-09 05:54] LABS: ALBUMIN 1.8 g/dL (3.4-5.0); BILIRUBIN,TOTAL 2.5 mg/dL (0.1-1.0); CALCIUM, TOTAL 8.2 mg/dL (8.8-10.5); CREATININE 1.89 mg/dL (0.60-1.30); MAGNESIUM 1.9 mg/dL (1.80-2.40); POTASSIUM 3.5 mmol/L (3.5-5.1); TOTAL PROTEIN, SERUM 5.3 g/dL (6.4-8.2)
[2016-07-09 07:13] LABS: RBC MORPHOLOGY COMMENT NORMAL RBC MORPH
[2016-07-09 07:57] LABS: ORIG DRAW (USER) MSIMS
[2016-07-09] MEDS: AMIODARONE HCL 200 MG TABLET PO SCH ×2 (09:15→20:28)
[2016-07-09] MEDS: PANTOPRAZOLE SODIUM 40 MG/VIAL IVP SCH (09:15)
[2016-07-09] MEDS: ASPIRIN 81 MG CHEWABLE TABLET PO SCH (09:15)
[2016-07-09] MEDS: HEPARIN SODIUM 25000 UNITS/D5W 250 ML IV PRN (09:41)
[2016-07-09] MEDS ORDERED: FUROSEMIDE 40 MG/4 ML VIAL IVP ONE (10:15)
[2016-07-09] MEDS ORDERED: BISACODYL 10 MG RECTAL RECTAL SUPPOSITORY PR PRN (10:45)
[2016-07-09] MEDS: POTASSIUM CHL 10 MEQ/WATER 50 ML IV SCH ×4 (11:11→16:57)
[2016-07-09 13:34] LABS: ABG A-A DIFF O2 78.2 mmHg (10-20.0); ABG BASE EXCESS -0.4 mmol/L (-2.0-3.0); ABG HCO3 24.5 mmol/L (22.0-26.0); ABG OXYHEMOGLOBIN 95.7 % (94.0-100.0); ABG PCO2 35 mmHg (35-45); ABG PH 7.446 (7.35-7.450); ALLEN TEST, BLOOD GAS Positive
[2016-07-09] MEDS: LORazepam 2 MG/ML VIAL IVP PRN ×2 (14:38→19:38)
[2016-07-09] MEDS: ATORVASTATIN CALCIUM 10 MG TABLET PO SCH (20:28)
[2016-07-10] VITALS (7 sets, daily range): BP systolic 100–139; BP diastolic 48–75
[2016-07-10] MEDS: MetroNIDAZOLE 500 MG/NACL 100 ML IV SCH ×3 (01:49→17:55)
[2016-07-10] MEDS: PIPERACILLIN SODIUM/TAZOBACTAM 2.25 GM in DEXTROSE 5%-WATER 50 ML IV SCH ×4 (01:49→18:39)
[2016-07-10 05:47] LABS: HEMATOCRIT 33.3 % (41-53); HEMOGLOBIN 10.7 g/dL (13.5-17.5); MEAN CORPUSCULAR HEMOGLOBIN 30.6 pg (26.0-34.0); MEAN CORPUSCULAR HGB CONC 32.2 G/dL (31.0-37.0); MEAN CORPUSCULAR VOLUME 95 fL (80-100); PLATELET COUNT (AUTO) 159 K/uL (150-450); RED CELL DISTRIBUTION WIDTH 15.7 % (11.5-14.5); WHITE BLOOD COUNT (AUTO) 11.8 K/uL (4.5-11.0)
[2016-07-10 06:14] LABS: CALCIUM, TOTAL 8.1 mg/dL (8.8-10.5); CREATININE 1.97 mg/dL (0.60-1.30); MAGNESIUM 1.9 mg/dL (1.80-2.40); PHOSPHORUS 2.5 mg/dL (2.5-4.9); POTASSIUM 3.5 mmol/L (3.5-5.1)
[2016-07-10 07:57] LABS: BAND NEUTROPHILS % (MANUAL) 1 % (1-5); EOSINOPHILS % (MANUAL) 1 % (1-6); LYMPHOCYTES % (MANUAL) 10 % (22-44); RBC MORPHOLOGY COMMENT NORMAL RBC MORPH; TOTAL CELLS COUNTED 100
[2016-07-10] MEDS: ASPIRIN 81 MG CHEWABLE TABLET PO SCH (09:18)
[2016-07-10] MEDS: AMIODARONE HCL 200 MG TABLET PO SCH ×2 (09:18→20:40)
[2016-07-10] MEDS: PANTOPRAZOLE SODIUM 40 MG/VIAL IVP SCH (09:18)
[2016-07-10] MEDS ORDERED: POTASSIUM CHL 10 MEQ/WATER 50 ML IV ONE (10:00)
[2016-07-10 10:10] LABS: ABG A-A DIFF O2 75.4 mmHg (10-20.0); ABG BASE EXCESS -0.3 mmol/L (-2.0-3.0); ABG HCO3 24.8 mmol/L (22.0-26.0); ABG OXYHEMOGLOBIN 96.3 % (94.0-100.0); ABG PCO2 32 mmHg (35-45); ABG PH 7.476 (7.35-7.450); TEMPERATURE, FAHRENHEIT, BG 98.6 FAHREN (96.0-98.6)
[2016-07-10 10:12] LABS: ALLEN TEST, BLOOD GAS Positive
[2016-07-10] MEDS ORDERED: DEXTROSE 50%-WATER 25 GM/50 ML SYRINGE IVP PRN (10:30)
[2016-07-10 11:59] LABS: ABG A-A DIFF O2 43.9 mmHg (10-20.0); ABG BASE EXCESS 0.1 mmol/L (-2.0-3.0); ABG HCO3 24.8 mmol/L (22.0-26.0); ABG OXYHEMOGLOBIN 96.8 % (94.0-100.0); ABG PCO2 37 mmHg (35-45); ABG PH 7.439 (7.35-7.450); ALLEN TEST, BLOOD GAS Positive; TEMPERATURE, FAHRENHEIT, BG 98.6 FAHREN (96.0-98.6)
[2016-07-10] MEDS: MORPHINE SULFATE 4 MG/ML SYRINGE IVP PRN (12:37)
[2016-07-10 13:12] LABS: GLUCOSE,POINT OF CARE 159 MG/DL (70-110)
[2016-07-10] MEDS: RIVAROXABAN 15 MG TABLET PO SCH (17:30)
[2016-07-10 18:47] LABS: GLUCOSE,POINT OF CARE 129 MG/DL (70-110)
[2016-07-10] MEDS: ATORVASTATIN CALCIUM 10 MG TABLET PO SCH (20:39)
[2016-07-10] MEDS: METOPROLOL TARTRATE 25 MG TABLET PO SCH (20:39)
[2016-07-11] VITALS (7 sets, daily range): BP systolic 117–145; BP diastolic 65–86
[2016-07-11] MEDS: INSULIN REGULAR, HUMAN 100 UNITS/ML SQ PRN ×2 (00:27→04:29)
[2016-07-11] MEDS: PIPERACILLIN SODIUM/TAZOBACTAM 2.25 GM in DEXTROSE 5%-WATER 50 ML IV SCH ×4 (00:29→21:04)
[2016-07-11] MEDS: MetroNIDAZOLE 500 MG/NACL 100 ML IV SCH ×3 (00:29→17:41)
[2016-07-11 00:32] LABS: GLUCOSE,POINT OF CARE 128 MG/DL (70-110)
[2016-07-11 04:32] LABS: GLUCOSE,POINT OF CARE 137 MG/DL (70-110)
[2016-07-11 05:13] LABS: BASOPHILS # (AUTO) 0.01 K/uL (0.00-0.20); BASOPHILS % (AUTO) 0.1 % (0.0-2.0); EOSINOPHILS % (AUTO) 1.95 % (1.0-6.0); HEMOGLOBIN 9.8 g/dL (13.5-17.5); LYMPHOCYTES # (AUTO) 0.5 K/uL (1.0-4.8); LYMPHOCYTES % (AUTO) 4.9 % (22.0-44.0); MEAN CORPUSCULAR HEMOGLOBIN 31.7 pg (26.0-34.0); MEAN CORPUSCULAR HGB CONC 33.9 G/dL (31.0-37.0); MEAN CORPUSCULAR VOLUME 94 fL (80-100); MONOCYTES # (AUTO) 0.4 K/uL (0.1-1.0); MONOCYTES % (AUTO) 4.1 % (2.0-9.0); NEUTROPHILS # (AUTO) 9.4 K/uL (1.8-7.7); PLATELET COUNT (AUTO) 197 K/uL (150-450); RED CELL DISTRIBUTION WIDTH 15.9 % (11.5-14.5); WHITE BLOOD COUNT (AUTO) 10.5 K/uL (4.5-11.0)
[2016-07-11 06:02] LABS: ALBUMIN 1.8 g/dL (3.4-5.0); BILIRUBIN,TOTAL 1.9 mg/dL (0.1-1.0); CALCIUM, TOTAL 8.2 mg/dL (8.8-10.5); CREATININE 1.74 mg/dL (0.60-1.30); MAGNESIUM 1.9 mg/dL (1.80-2.40); POTASSIUM 3.4 mmol/L (3.5-5.1)
[2016-07-11 06:10] LABS: NEUTROPHILS % (AUTO) 88.9 % (40.0-70.0)
[2016-07-11] MEDS: ASPIRIN 81 MG CHEWABLE TABLET PO SCH (08:47)
[2016-07-11] MEDS: PANTOPRAZOLE SODIUM 40 MG/VIAL IVP SCH (08:47)
[2016-07-11] MEDS: AMIODARONE HCL 200 MG TABLET PO SCH ×2 (08:47→21:03)
[2016-07-11] MEDS ORDERED: SODIUM CHLORIDE 0.9% 250 ML IV ONE (10:46)
[2016-07-11 14:56] LABS: GLUCOSE COMMENT 1 Received Meds; GLUCOSE,POINT OF CARE 137 MG/DL (70-110)
[2016-07-11] MEDS ORDERED: SODIUM CHLORIDE 0.9% 100 ML ONE (17:28)
[2016-07-11] MEDS: METOPROLOL TARTRATE 25 MG TABLET PO SCH (21:01)
[2016-07-11] MEDS: ATORVASTATIN CALCIUM 10 MG TABLET PO SCH (21:03)
[2016-07-11] MEDS: RIVAROXABAN 15 MG TABLET PO SCH (21:03)
[2016-07-11] MEDS: LORazepam 2 MG/ML VIAL IVP PRN (21:04)
[2016-07-11] MEDS ORDERED: POTASSIUM CHLORIDE 20 MEQ ER TABLET PO ONE (23:00)
[2016-07-12] MEDS: MetroNIDAZOLE 500 MG/NACL 100 ML IV SCH ×3 (00:12→17:32)
[2016-07-12] MEDS ORDERED: SODIUM CHLORIDE 0.9% 100 ML ONE (01:23)
[2016-07-12] MEDS: PIPERACILLIN SODIUM/TAZOBACTAM 2.25 GM in DEXTROSE 5%-WATER 50 ML IV SCH ×4 (01:23→18:58)
[2016-07-12 05:19] VITALS: BP 148/83
[2016-07-12 07:00] LABS: BASOPHILS % (AUTO) 0.1 % (0.0-2.0); EOSINOPHILS % (AUTO) 1.7 % (1.0-6.0); HEMATOCRIT 31.7 % (41-53); HEMOGLOBIN 10.3 g/dL (13.5-17.5); LYMPHOCYTES # (AUTO) 0.6 K/uL (1.0-4.8); LYMPHOCYTES % (AUTO) 5.8 % (22.0-44.0); MEAN CORPUSCULAR HEMOGLOBIN 30.6 pg (26.0-34.0); MEAN CORPUSCULAR HGB CONC 32.3 G/dL (31.0-37.0); MEAN CORPUSCULAR VOLUME 95 fL (80-100); MONOCYTES # (AUTO) 0.5 K/uL (0.1-1.0); MONOCYTES % (AUTO) 5.5 % (2.0-9.0); NEUTROPHILS # (AUTO) 8.6 K/uL (1.8-7.7); PLATELET COUNT (AUTO) 244 K/uL (150-450); RED BLOOD CELL COUNT(AUTO) 3.35 MIL/uL (4.50-5.90); RED CELL DISTRIBUTION WIDTH 15.7 % (11.5-14.5); WHITE BLOOD COUNT (AUTO) 9.9 K/uL (4.5-11.0)
[2016-07-12 07:04] LABS: NEUTROPHILS % (AUTO) 86.9 % (40.0-70.0)
[2016-07-12 07:14] LABS: ALBUMIN 1.9 g/dL (3.4-5.0); BILIRUBIN,TOTAL 1.8 mg/dL (0.1-1.0); CALCIUM, TOTAL 7.7 mg/dL (8.8-10.5); CREATININE 1.64 mg/dL (0.60-1.30); MAGNESIUM 2.1 mg/dL (1.80-2.40); POTASSIUM 3.6 mmol/L (3.5-5.1); TOTAL PROTEIN, SERUM 5.2 g/dL (6.4-8.2)
[2016-07-12 07:29] VITALS: BP 144/71
[2016-07-12] MEDS: AMIODARONE HCL 200 MG TABLET PO SCH ×2 (09:23→21:30)
[2016-07-12] MEDS: APIXABAN 2.5 MG TABLET PO SCH ×2 (09:23→21:30)
[2016-07-12] MEDS: PANTOPRAZOLE SODIUM 40 MG/VIAL IVP SCH (09:23)
[2016-07-12] MEDS: ASPIRIN 81 MG CHEWABLE TABLET PO SCH (09:23)
[2016-07-12] MEDS: DEXTROSE 5%-WATER 1,000 ML IV SCH (11:13)
[2016-07-12 11:43] VITALS: BP 136/75
[2016-07-12] MEDS: INSULIN REGULAR, HUMAN 100 UNITS/ML SQ PRN (12:58)
[2016-07-12 17:33] VITALS: BP 138/78
[2016-07-12 19:24] VITALS: BP 133/76
[2016-07-12] MEDS ORDERED: DEXTROSE 50%-WATER 25 GM/50 ML SYRINGE IVP PRN (21:15)
[2016-07-12] MEDS: METOPROLOL TARTRATE 25 MG TABLET PO SCH (21:30)
[2016-07-12] MEDS: ATORVASTATIN CALCIUM 10 MG TABLET PO SCH (21:30)
[2016-07-12] MEDS: INSULIN ASPART 100 UNITS/ML SQ PRN (21:40)
[2016-07-12 23:06] LABS: GLUCOSE COMMENT 1 Received Meds; GLUCOSE,POINT OF CARE 161 MG/DL (70-110)
[2016-07-12 23:43] VITALS: BP 134/74
[2016-07-13] MEDS: PIPERACILLIN SODIUM/TAZOBACTAM 2.25 GM in DEXTROSE 5%-WATER 50 ML IV SCH ×4 (01:35→19:42)
[2016-07-13 04:47] VITALS: BP 140/74
[2016-07-13 06:05] LABS: BASOPHILS # (AUTO) 0.02 K/uL (0.00-0.20); BASOPHILS % (AUTO) 0.2 % (0.0-2.0); EOSINOPHILS # (AUTO) 0.17 K/uL (0.00-0.70); EOSINOPHILS % (AUTO) 2.09 % (1.0-6.0); HEMATOCRIT 29.4 % (41-53); HEMOGLOBIN 9.9 g/dL (13.5-17.5); LYMPHOCYTES # (AUTO) 0.6 K/uL (1.0-4.8); LYMPHOCYTES % (AUTO) 7.9 % (22.0-44.0); MEAN CORPUSCULAR HEMOGLOBIN 31.7 pg (26.0-34.0); MEAN CORPUSCULAR HGB CONC 33.6 G/dL (31.0-37.0); MEAN CORPUSCULAR VOLUME 94 fL (80-100); MONOCYTES # (AUTO) 0.5 K/uL (0.1-1.0); MONOCYTES % (AUTO) 6.4 % (2.0-9.0); NEUTROPHILS # (AUTO) 6.7 K/uL (1.8-7.7); NEUTROPHILS % (AUTO) 83.5 % (40.0-70.0); PLATELET COUNT (AUTO) 259 K/uL (150-450); RED BLOOD CELL COUNT(AUTO) 3.12 MIL/uL (4.50-5.90); RED CELL DISTRIBUTION WIDTH 15.3 % (11.5-14.5)
[2016-07-13] MEDS: INSULIN ASPART 100 UNITS/ML SQ PRN ×3 (06:23→21:02)
[2016-07-13 06:58] LABS: ALBUMIN 1.8 g/dL (3.4-5.0); BILIRUBIN,TOTAL 1.6 mg/dL (0.1-1.0); CALCIUM, TOTAL 7.5 mg/dL (8.8-10.5); CREATININE 1.49 mg/dL (0.60-1.30); PHOSPHORUS 3.2 mg/dL (2.5-4.9); POTASSIUM 3.6 mmol/L (3.5-5.1); TOTAL PROTEIN, SERUM 5.1 g/dL (6.4-8.2)
[2016-07-13 08:05] VITALS: BP 134/71
[2016-07-13] MEDS: PANTOPRAZOLE SODIUM 40 MG/VIAL IVP SCH (09:04)
[2016-07-13] MEDS: AMIODARONE HCL 200 MG TABLET PO SCH ×2 (09:04→20:52)
[2016-07-13] MEDS: MetroNIDAZOLE 500 MG/NACL 100 ML IV SCH ×3 (09:04→17:58)
[2016-07-13] MEDS: APIXABAN 2.5 MG TABLET PO SCH ×2 (09:05→20:51)
[2016-07-13] MEDS: ASPIRIN 81 MG CHEWABLE TABLET PO SCH (09:05)
[2016-07-13] MEDS ORDERED: SODIUM CHLORIDE 0.9% 250 ML IV ONE (09:15)
[2016-07-13] MEDS: EPOETIN ALFA 10,000 UNITS/ML VIAL SQ SCH (11:29)
[2016-07-13 12:05] VITALS: BP 118/62
[2016-07-13] MEDS: DEXTROSE 5%-WATER 1,000 ML IV SCH ×2 (12:44)
[2016-07-13 19:27] LABS: GLUCOSE,POINT OF CARE 168 MG/DL (70-110)
[2016-07-13 19:31] LABS: GLUCOSE,POINT OF CARE 140 MG/DL (70-110)
[2016-07-13 20:08] VITALS: BP 141/65
[2016-07-13] MEDS: METOPROLOL TARTRATE 25 MG TABLET PO SCH (20:51)
[2016-07-13] MEDS: ATORVASTATIN CALCIUM 10 MG TABLET PO SCH (20:51)
[2016-07-14] VITALS (7 sets, daily range): BP systolic 121–139; BP diastolic 66–78
[2016-07-14] MEDS: PIPERACILLIN SODIUM/TAZOBACTAM 2.25 GM in DEXTROSE 5%-WATER 50 ML IV SCH ×4 (01:03→17:56)
[2016-07-14] MEDS: MetroNIDAZOLE 500 MG/NACL 100 ML IV SCH ×3 (01:53→17:00)
[2016-07-14] MEDS: DEXTROSE 5%-WATER 1,000 ML IV SCH ×2 (05:12→21:28)
[2016-07-14] MEDS: APIXABAN 2.5 MG TABLET PO SCH ×2 (08:04→21:17)
[2016-07-14] MEDS: AMIODARONE HCL 200 MG TABLET PO SCH ×2 (08:04→21:17)
[2016-07-14] MEDS: PANTOPRAZOLE SODIUM 40 MG/VIAL IVP SCH (08:04)
[2016-07-14] MEDS: ASPIRIN 81 MG CHEWABLE TABLET PO SCH (08:04)
[2016-07-14 08:23] LABS: CALCIUM, TOTAL 7.5 mg/dL (8.8-10.5); CREATININE 1.28 mg/dL (0.60-1.30); MAGNESIUM 1.9 mg/dL (1.80-2.40); PHOSPHORUS 3.1 mg/dL (2.5-4.9)
[2016-07-14] MEDS: INSULIN ASPART 100 UNITS/ML SQ PRN ×2 (17:56→21:36)
[2016-07-14 19:31] LABS: GLUCOSE COMMENT 1 Received Meds; GLUCOSE,POINT OF CARE 171 MG/DL (70-110)
[2016-07-14 19:31] LABS: GLUCOSE,POINT OF CARE 137 MG/DL (70-110)
[2016-07-14] MEDS: METOPROLOL TARTRATE 25 MG TABLET PO SCH (21:17)
[2016-07-14] MEDS: ATORVASTATIN CALCIUM 10 MG TABLET PO SCH (21:17)
[2016-07-14 23:57] LABS: GLUCOSE COMMENT 1 Received Meds; GLUCOSE,POINT OF CARE 165 MG/DL (70-110)
[2016-07-15] MEDS: LORazepam 2 MG/ML VIAL IVP PRN (00:10)
[2016-07-15] MEDS: PIPERACILLIN SODIUM/TAZOBACTAM 2.25 GM in DEXTROSE 5%-WATER 50 ML IV SCH ×3 (00:46→11:59)
[2016-07-15] MEDS: MetroNIDAZOLE 500 MG/NACL 100 ML IV SCH ×3 (01:34→16:20)
[2016-07-15 05:14] VITALS: BP 147/79
[2016-07-15 07:34] LABS: CALCIUM, TOTAL 7.5 mg/dL (8.8-10.5); CREATININE 1.38 mg/dL (0.60-1.30); PHOSPHORUS 2.7 mg/dL (2.5-4.9); POTASSIUM 3.6 mmol/L (3.5-5.1)
[2016-07-15 07:50] VITALS: BP 141/88
[2016-07-15] MEDS: EPOETIN ALFA 10,000 UNITS/ML VIAL SQ SCH (08:12)
[2016-07-15] MEDS: APIXABAN 2.5 MG TABLET PO SCH (08:13)
[2016-07-15] MEDS: PANTOPRAZOLE SODIUM 40 MG/VIAL IVP SCH (08:13)
[2016-07-15] MEDS: AMIODARONE HCL 200 MG TABLET PO SCH (08:13)
[2016-07-15] MEDS: ASPIRIN 81 MG CHEWABLE TABLET PO SCH (08:13)
[2016-07-15] MEDS ORDERED: AMIODARONE HCL 200 MG TABLET PO SCH (09:00)
[2016-07-15 11:26] VITALS: BP 145/59
[2016-07-15] MEDS: DEXTROSE 5%-WATER 1,000 ML IV SCH ×2 (12:15→17:45)
[2016-07-15 15:37] VITALS: BP 125/65
[2016-07-15] MEDS: INSULIN ASPART 100 UNITS/ML SQ PRN (18:36)
[2016-07-15 19:29] VITALS: BP 140/73
[2016-07-16] MEDS ORDERED: MULTIVITAMINS WITH MINERALS, THERAPEUTIC TABLET PO SCH (09:00)
[2016-07-16 14:12] LABS: GLUCOSE,POINT OF CARE 139 MG/DL (70-110)
[2016-07-16 14:52] LABS: GLUCOSE COMMENT 1 Received Meds; GLUCOSE,POINT OF CARE 183 MG/DL (70-110)
[2016-07-16 14:52] LABS: GLUCOSE COMMENT 1 Received Meds; GLUCOSE,POINT OF CARE 163 MG/DL (70-110)
[2016-07-16 14:52] LABS: GLUCOSE,POINT OF CARE 183 MG/DL (70-110)
[2016-07-16 14:52] LABS: GLUCOSE,POINT OF CARE 130 MG/DL (70-110)
[2016-07-21 18:12] LABS: GLUCOSE,POINT OF CARE 127 MG/DL (70-110)
[2016-07-21 18:12] LABS: GLUCOSE COMMENT 1 Received Meds; GLUCOSE,POINT OF CARE 169 MG/DL (70-110)
== END 2016-07-15 20:15 | DRG 853 ==
LOC: EMS 03:59 → ICU 11:22 → 5N 07-11 16:07
PROVIDERS: ADMIT Family Medicine; ATTEND Family Medicine
PROC: 0DBB0ZZ Excision of Ileum, Open Approach (ICD-10-PCS; 2016-07-03)
PROC: 5A1955Z Respiratory Ventilation, Greater than 96 Consecutive Hours (ICD-10-PCS; 2016-07-03)
PROC: 0BH17EZ Insertion of Endotracheal Airway into Trachea, Via Natural or Artificial Opening (ICD-10-PCS; 2016-07-03)
PROC: 0DTF0ZZ Resection of Right Large Intestine, Open Approach (ICD-10-PCS; principal; 2016-07-03 22:00)
PROC: 3E0234Z Introduction of Serum, Toxoid and Vaccine into Muscle, Percutaneous Approach (ICD-10-PCS; 2016-07-05)
PROC: 3E0234Z Introduction of Serum, Toxoid and Vaccine into Muscle, Percutaneous Approach (ICD-10-PCS; 2016-07-15)
DX: A41.9 Sepsis, unspecified organism (principal); K55.039 Acute (reversible) ischemia of large intestine, extent unspecified; N17.0 Acute kidney failure with tubular necrosis; K55.019 Acute (reversible) ischemia of small intestine, extent unspecified; R65.21 Severe sepsis with septic shock; J96.00 Acute respiratory failure, unspecified whether with hypoxia or hypercapnia; I21.4 Non-ST elevation (NSTEMI) myocardial infarction; K55.9 Vascular disorder of intestine, unspecified; E87.2 Acidosis; E87.0 Hyperosmolality and hypernatremia; I13.0 Hypertensive heart and chronic kidney disease with heart failure and stage 1 through stage 4 chronic kidney disease, or unspecified chronic kidney disease; N18.9 Chronic kidney disease, unspecified; J47.9 Bronchiectasis, uncomplicated; E87.5 Hyperkalemia; M10.00 Idiopathic gout, unspecified site; I48.91 Unspecified atrial fibrillation; I25.10 Atherosclerotic heart disease of native coronary artery without angina pectoris; K63.89 Other specified diseases of intestine; N18.3 Chronic kidney disease, stage 3 (moderate); R91.1 Solitary pulmonary nodule; D64.9 Anemia, unspecified; E78.00 Pure hypercholesterolemia, unspecified; E78.5 Hyperlipidemia, unspecified; E87.6 Hypokalemia; I35.0 Nonrheumatic aortic (valve) stenosis; R33.9 Retention of urine, unspecified; Z23 Encounter for immunization; Z91.013 Allergy to seafood; Z79.899 Other long term (current) drug therapy; Z79.82 Long term (current) use of aspirin; Z95.5 Presence of coronary angioplasty implant and graft; Z87.442 Personal history of urinary calculi; Z87.891 Personal history of nicotine dependence
CPT/HCPCS: 51702; 71250; 72192; 74150; 76770; 82271; 82306; 82570; 82805; 82962; 83036; 83605; 83735; 83970; 84100; 84132; 84156; 84300; 84443; 84540; 85007; 85014; 85018; 85379; 87040; 87070; 87081; 87205; 88307; 90471; 92610; 93005; 93306; 93970; 94002; 94003; 96361; 96365; 96366; 96368; 96374; 97162; 99291; C9113; J0171; J0282; J0330; J0885; J1160; J1170; J1265; J1644; J1940; J2060; J2250; J2270; J2370; J2543; J2704; J3010; J3480; J3490; J7030; J7040; J7050; J7060

== ENCOUNTER 2016-07-28 16:34 | Emergency (ER) | payer MEDICARE ==
[~2016-07-28] VITALS: Ht 177.8 cm; Wt 74.5 kg
[2016-07-28] MEDS ORDERED: AMIO200T2 PO (16:55)
[2016-07-28] MEDS ORDERED: INSNOV SQ (16:55)
[2016-07-28] MEDS ORDERED: PANT40TA25 PO (16:55)
[2016-07-28] MEDS ORDERED: APIX2.5T PO (16:55)
[2016-07-28 17:27] LABS: BASOPHILS % (AUTO) 0.4 % (0.0-2.0); EOSINOPHILS % (AUTO) 1.3 % (1.0-6.0); HEMATOCRIT 33.7 % (41-53); LYMPHOCYTES # (AUTO) 0.6 K/uL (1.0-4.8); LYMPHOCYTES % (AUTO) 5.1 % (22.0-44.0); MEAN CORPUSCULAR HEMOGLOBIN 30.1 pg (26.0-34.0); MEAN CORPUSCULAR HGB CONC 32.6 G/dL (31.0-37.0); MEAN CORPUSCULAR VOLUME 92 fL (80-100); MONOCYTES # (AUTO) 0.9 K/uL (0.1-1.0); MONOCYTES % (AUTO) 7.2 % (2.0-9.0); NEUTROPHILS # (AUTO) 10.6 K/uL (1.8-7.7); PLATELET COUNT (AUTO) 254 K/uL (150-450); RED BLOOD CELL COUNT(AUTO) 3.66 MIL/uL (4.50-5.90); RED CELL DISTRIBUTION WIDTH 15.5 % (11.5-14.5); WHITE BLOOD COUNT (AUTO) 12.4 K/uL (4.5-11.0)
[2016-07-28 17:40] LABS: ANION GAP 9 mmol/L (8-16); CARBON DIOXIDE 30 mmol/L (22-29); CHLORIDE 102 mmol/L (98-107); CREATININE 1.42 mg/dL (0.60-1.30); GLOMERULAR FILTR. RATE CALC 47 mL/min (>60); SODIUM SERUM 141 mmol/L (136-145); UREA NITROGEN, BLOOD 18 mg/dL (7-18)
[2016-07-28 17:46] LABS: ALANINE AMINOTRANSFERASE 30 U/L (12-78); ALBUMIN 2.3 g/dL (3.4-5.0); ASPARTATE AMINOTRANSFERASE 30 U/L (15-37); BILIRUBIN,TOTAL 1.4 mg/dL (0.1-1.0); CREATINE KINASE, TOTAL 20 U/L (39-308); TOTAL PROTEIN, SERUM 7.1 g/dL (6.4-8.2)
[2016-07-28 17:47] LABS: B-TYPE NATRIURETIC PEPTIDE 220 pg/mL (0-100); RBC MORPHOLOGY COMMENT ABNORMAL RBC MORPH
[2016-07-28 17:49] LABS: INR 1.1 (0.9-1.1)
[2016-07-28 20:15] LABS: APPEARANCE,URINE CLEAR (CLEAR); GLUCOSE, URINE (UA) NEGATIVE (NEGATIVE); KETONES,URINE NEGATIVE (NEGATIVE); LEUKOCYTE ESTERASE ,URINE NEGATIVE (NEGATIVE); OCCULT BLOOD,URINE NEGATIVE (NEGATIVE); PH,URINE 5.5 (5.0-8.0); PROTEIN,URINE POS 1+ (NEGATIVE)
[2016-07-28 20:39] LABS: RBC,URINE 0-2 /HPF (0-2); SQUAMOUS EPITHELIAL CELL,UR Rare /LPF (None Seen); WBC,URINE 0-2 /HPF (0-5)
[2016-07-28 21:25] VITALS: BP 126/71
== END 2016-07-28 22:31 | disposition home or self-care (01) ==
LOC: EMS 16:35
DX: S70.02XA Contusion of left hip, initial encounter (principal); E78.00 Pure hypercholesterolemia, unspecified; I10 Essential (primary) hypertension; Z79.01 Long term (current) use of anticoagulants; Z91.013 Allergy to seafood; Z79.82 Long term (current) use of aspirin; Z79.4 Long term (current) use of insulin; W19.XXXA Unspecified fall, initial encounter; Y93.89 Activity, other specified; Y92.815 Train as the place of occurrence of the external cause; Y99.8 Other external cause status
CPT/HCPCS: 70450; 72125; 73503; 82962; 93005; 99285

== ENCOUNTER 2016-08-09 14:11 | Emergency (ER) | payer MEDICARE ==
[~2016-08-09] VITALS: Ht 175.3 cm; Wt 71.0 kg
[~2016-08-09 14:11] MED LIST changes: +AMIO200T2 PO; +APIX2.5T PO; +INSNOV SQ; -METO50TA5 PO; +PANT40TA25 PO
[2016-08-09 15:32] LABS: GLUCOSE,POINT OF CARE 143 MG/DL (70-110)
[2016-08-09] MEDS ORDERED: SODIUM CHLORIDE 0.9% 1,000 ML IV ONE (16:15)
[2016-08-09 16:59] LABS: BASOPHILS % (AUTO) 0.4 % (0.0-2.0); EOSINOPHILS % (AUTO) 4.7 % (1.0-6.0); HEMATOCRIT 30.6 % (41-53); HEMOGLOBIN 9.8 g/dL (13.5-17.5); LYMPHOCYTES # (AUTO) 0.8 K/uL (1.0-4.8); LYMPHOCYTES % (AUTO) 10.9 % (22.0-44.0); MEAN CORPUSCULAR HEMOGLOBIN 29.3 pg (26.0-34.0); MEAN CORPUSCULAR VOLUME 92 fL (80-100); MONOCYTES # (AUTO) 0.6 K/uL (0.1-1.0); MONOCYTES % (AUTO) 8.4 % (2.0-9.0); NEUTROPHILS # (AUTO) 5.7 K/uL (1.8-7.7); NEUTROPHILS % (AUTO) 75.6 % (40.0-70.0); PLATELET COUNT (AUTO) 388 K/uL (150-450); RED BLOOD CELL COUNT(AUTO) 3.34 MIL/uL (4.50-5.90); RED CELL DISTRIBUTION WIDTH 14.9 % (11.5-14.5); WHITE BLOOD COUNT (AUTO) 7.6 K/uL (4.5-11.0)
[2016-08-09 17:02] LABS: CALCIUM, TOTAL 8.8 mg/dL (8.8-10.5); CREATININE 1.42 mg/dL (0.60-1.30); POTASSIUM 3.6 mmol/L (3.5-5.1)
[2016-08-09 17:06] LABS: INR 1.1 (0.9-1.1); PROTHROMBIN TIME 12.1 SEC (9.4-11.6)
[2016-08-09 17:08] LABS: ALBUMIN 2.1 g/dL (3.4-5.0); BILIRUBIN,TOTAL 0.6 mg/dL (0.1-1.0); TOTAL PROTEIN, SERUM 6.9 g/dL (6.4-8.2)
[2016-08-09 17:10] LABS: LACTIC ACID 1.7 mmol/L (0.4-2.0)
[2016-08-09 18:46] LABS: APPEARANCE,URINE CLEAR (CLEAR); GLUCOSE, URINE (UA) NEGATIVE (NEGATIVE); KETONES,URINE NEGATIVE (NEGATIVE); LEUKOCYTE ESTERASE ,URINE NEGATIVE (NEGATIVE); OCCULT BLOOD,URINE NEGATIVE (NEGATIVE); PH,URINE 5.5 (5.0-8.0); PROTEIN,URINE NEGATIVE (NEGATIVE)
[2016-08-09 18:47] LABS: ADD UA MICROSCOPIC NO
[2016-08-09 19:18] VITALS: BP 119/63
== END 2016-08-09 20:20 | disposition home or self-care (01) ==
LOC: EMS 14:18
DX: R10.31 Right lower quadrant pain (principal); I10 Essential (primary) hypertension; E78.00 Pure hypercholesterolemia, unspecified; Z79.82 Long term (current) use of aspirin; Z90.49 Acquired absence of other specified parts of digestive tract; Z48.03 Encounter for change or removal of drains; Z91.013 Allergy to seafood
CPT/HCPCS: 36415; 74176; 80053; 81003; 82962; 83605; 83880; 85025; 85610; 87040; 93005; 96360; 96361; 99285; J7030

== ENCOUNTER 2016-10-04 12:44 | Inpatient (IN) | payer MEDICARE ==
[~2016-10-04] VITALS: Ht 162.6 cm; Wt 78.1 kg
[2016-10-04] MEDS ORDERED: APIX5TAB PO (13:09)
[2016-10-04] MEDS ORDERED: MECL-111 PO (13:09)
[2016-10-04 13:58] LABS: BASOPHILS % (AUTO) 0.4 % (0.0-2.0); EOSINOPHILS % (AUTO) 2.5 % (1.0-6.0); HEMATOCRIT 25.8 % (41-53); HEMOGLOBIN 8.3 g/dL (13.5-17.5); LYMPHOCYTES # (AUTO) 0.6 K/uL (1.0-4.8); LYMPHOCYTES % (AUTO) 10.9 % (22.0-44.0); MEAN CORPUSCULAR HEMOGLOBIN 29.5 pg (26.0-34.0); MEAN CORPUSCULAR HGB CONC 32.3 G/dL (31.0-37.0); MEAN CORPUSCULAR VOLUME 91 fL (80-100); MONOCYTES # (AUTO) 0.6 K/uL (0.1-1.0); NEUTROPHILS # (AUTO) 4.4 K/uL (1.8-7.7); NEUTROPHILS % (AUTO) 76.2 % (40.0-70.0); PLATELET COUNT (AUTO) 213 K/uL (150-450); RED BLOOD CELL COUNT(AUTO) 2.83 MIL/uL (4.50-5.90); RED CELL DISTRIBUTION WIDTH 19.2 % (11.5-14.5); WHITE BLOOD COUNT (AUTO) 5.8 K/uL (4.5-11.0)
[2016-10-04 14:06] LABS: CALCIUM, TOTAL 8.5 mg/dL (8.8-10.5); CREATININE 1.93 mg/dL (0.60-1.30); POTASSIUM 3.4 mmol/L (3.5-5.1)
[2016-10-04 14:09] LABS: ALBUMIN 3.3 g/dL (3.4-5.0); BILIRUBIN,TOTAL 0.4 mg/dL (0.1-1.0); TOTAL PROTEIN, SERUM 7.2 g/dL (6.4-8.2)
[2016-10-04 14:29] LABS: RBC MORPHOLOGY COMMENT ABNORMAL RBC MORPH
[2016-10-04] MEDS ORDERED: ONDANSETRON HCL 4 MG/2 ML VIAL IVP PRN (14:30)
[2016-10-04] MEDS ORDERED: ACETAMINOPHEN 325 MG TABLET PO PRN (14:30)
[2016-10-04 21:43] VITALS: BP 129/73
[2016-10-04] MEDS ORDERED: FERR-72 PO (22:09)
[2016-10-05 00:32] VITALS: BP 119/60
[2016-10-05] MEDS ORDERED: ONDANSETRON HCL 4 MG/2 ML VIAL IVP PRN (00:45)
[2016-10-05] MEDS: DEXTROSE 5%-0.45% SODIUM CHL 1,000 ML IV SCH ×3 (01:04→17:37)
[2016-10-05 01:51] LABS: HEMATOCRIT 22.6 % (41-53); HEMOGLOBIN 7.5 g/dL (13.5-17.5); MEAN CORPUSCULAR HEMOGLOBIN 29.8 pg (26.0-34.0); MEAN CORPUSCULAR HGB CONC 33.2 G/dL (31.0-37.0); MEAN CORPUSCULAR VOLUME 90 fL (80-100); PLATELET COUNT (AUTO) 177 K/uL (150-450); RED BLOOD CELL COUNT(AUTO) 2.52 MIL/uL (4.50-5.90); RED CELL DISTRIBUTION WIDTH 18.6 % (11.5-14.5); WHITE BLOOD COUNT (AUTO) 4.8 K/uL (4.5-11.0)
[2016-10-05 04:03] VITALS: BP 121/60
[2016-10-05 07:31] VITALS: BP 118/60
[2016-10-05 08:08] LABS: HEMATOCRIT 24.1 % (41-53); HEMOGLOBIN 7.7 g/dL (13.5-17.5); MEAN CORPUSCULAR HEMOGLOBIN 29.2 pg (26.0-34.0); MEAN CORPUSCULAR HGB CONC 32.1 G/dL (31.0-37.0); MEAN CORPUSCULAR VOLUME 91 fL (80-100); PLATELET COUNT (AUTO) 198 K/uL (150-450); RED BLOOD CELL COUNT(AUTO) 2.64 MIL/uL (4.50-5.90); RED CELL DISTRIBUTION WIDTH 18.8 % (11.5-14.5); WHITE BLOOD COUNT (AUTO) 4.8 K/uL (4.5-11.0)
[2016-10-05] MEDS ORDERED: SODIUM CHLORIDE 0.9% 0 ML IV ONE (08:20)
[2016-10-05] MEDS: PANTOPRAZOLE SODIUM 40 MG/VIAL IVP SCH (08:49)
[2016-10-05] MEDS ORDERED: PANTOPRAZOLE SODIUM 40 MG/VIAL IVP SCH (09:00)
[2016-10-05 11:34] VITALS: BP 113/56
[2016-10-05 15:50] VITALS: BP 115/56
[2016-10-05 16:57] LABS: HEMOGLOBIN 8.5 g/dL (13.5-17.5); MEAN CORPUSCULAR HEMOGLOBIN 29.7 pg (26.0-34.0); MEAN CORPUSCULAR HGB CONC 32.6 G/dL (31.0-37.0); MEAN CORPUSCULAR VOLUME 91 fL (80-100); PLATELET COUNT (AUTO) 205 K/uL (150-450); RED BLOOD CELL COUNT(AUTO) 2.85 MIL/uL (4.50-5.90); RED CELL DISTRIBUTION WIDTH 18.6 % (11.5-14.5); WHITE BLOOD COUNT (AUTO) 5.9 K/uL (4.5-11.0)
[2016-10-05 19:35] VITALS: BP 99/67
[2016-10-06] VITALS (7 sets, daily range): BP systolic 116–143; BP diastolic 58–70
[2016-10-06] MEDS: DEXTROSE 5%-0.45% SODIUM CHL 1,000 ML IV SCH (00:45)
[2016-10-06 07:05] LABS: BASOPHILS # (AUTO) 0.02 K/uL (0.00-0.20); BASOPHILS % (AUTO) 0.3 % (0.0-2.0); EOSINOPHILS # (AUTO) 0.04 K/uL (0.00-0.70); HEMATOCRIT 27.3 % (41-53); HEMOGLOBIN 8.8 g/dL (13.5-17.5); LYMPHOCYTES # (AUTO) 0.5 K/uL (1.0-4.8); LYMPHOCYTES % (AUTO) 9.2 % (22.0-44.0); MEAN CORPUSCULAR HEMOGLOBIN 29.3 pg (26.0-34.0); MEAN CORPUSCULAR HGB CONC 32.1 G/dL (31.0-37.0); MEAN CORPUSCULAR VOLUME 91 fL (80-100); MONOCYTES # (AUTO) 0.5 K/uL (0.1-1.0); MONOCYTES % (AUTO) 9.7 % (2.0-9.0); NEUTROPHILS # (AUTO) 4.2 K/uL (1.8-7.7); NEUTROPHILS % (AUTO) 80.1 % (40.0-70.0); PLATELET COUNT (AUTO) 190 K/uL (150-450); RED BLOOD CELL COUNT(AUTO) 2.99 MIL/uL (4.50-5.90); RED CELL DISTRIBUTION WIDTH 18.6 % (11.5-14.5); WHITE BLOOD COUNT (AUTO) 5.3 K/uL (4.5-11.0)
[2016-10-06 07:37] LABS: ALBUMIN 2.8 g/dL (3.4-5.0); BILIRUBIN,TOTAL 0.4 mg/dL (0.1-1.0); CALCIUM, TOTAL 8.6 mg/dL (8.8-10.5); CREATININE 1.52 mg/dL (0.60-1.30); MAGNESIUM 1.9 mg/dL (1.80-2.40); POTASSIUM 3.5 mmol/L (3.5-5.1); TOTAL PROTEIN, SERUM 6.4 g/dL (6.4-8.2)
[2016-10-06] MEDS ORDERED: PROPOFOL 1% 20 ML VIAL IVP ONE (12:00)
[2016-10-06] MEDS: PANTOPRAZOLE SODIUM 40 MG/VIAL IVP SCH (12:30)
[2016-10-06] MEDS ORDERED: FURO40 PO (16:19)
[2016-10-06] MEDS ORDERED: MAGNESIUM HYDROXIDE SUSPENSION 30 ML UDCUP PO PRN (20:00)
[2016-10-06] MEDS: SIMVASTATIN 20 MG TABLET PO SCH (20:26)
[2016-10-06] MEDS: AMIODARONE HCL 200 MG TABLET PO SCH (20:27)
[2016-10-07 04:03] VITALS: BP 123/59
[2016-10-07 06:28] LABS: BASOPHILS % (AUTO) 0.3 % (0.0-2.0); EOSINOPHILS % (AUTO) 1.9 % (1.0-6.0); HEMATOCRIT 26.9 % (41-53); HEMOGLOBIN 8.7 g/dL (13.5-17.5); LYMPHOCYTES # (AUTO) 0.3 K/uL (1.0-4.8); LYMPHOCYTES % (AUTO) 8.5 % (22.0-44.0); MEAN CORPUSCULAR HEMOGLOBIN 29.2 pg (26.0-34.0); MEAN CORPUSCULAR HGB CONC 32.2 G/dL (31.0-37.0); MEAN CORPUSCULAR VOLUME 91 fL (80-100); MONOCYTES # (AUTO) 0.4 K/uL (0.1-1.0); MONOCYTES % (AUTO) 11.8 % (2.0-9.0); NEUTROPHILS # (AUTO) 2.7 K/uL (1.8-7.7); NEUTROPHILS % (AUTO) 77.5 % (40.0-70.0); PLATELET COUNT (AUTO) 199 K/uL (150-450); RED BLOOD CELL COUNT(AUTO) 2.97 MIL/uL (4.50-5.90); RED CELL DISTRIBUTION WIDTH 18.5 % (11.5-14.5); WHITE BLOOD COUNT (AUTO) 3.5 K/uL (4.5-11.0)
[2016-10-07 06:33] LABS: RBC MORPHOLOGY COMMENT ABNORMAL RBC MORPH
[2016-10-07 06:43] LABS: CALCIUM, TOTAL 8.6 mg/dL (8.8-10.5); CREATININE 1.58 mg/dL (0.60-1.30); MAGNESIUM 1.9 mg/dL (1.80-2.40); POTASSIUM 3.6 mmol/L (3.5-5.1)
[2016-10-07 07:30] VITALS: BP 137/61
[2016-10-07] MEDS: FAMOTIDINE 20 MG TABLET PO SCH (08:19)
[2016-10-07] MEDS: ALLOPURINOL 100 MG TABLET PO SCH (08:19)
[2016-10-07] MEDS: ISOSORBIDE MONONITRATE 30 MG ER TABLET PO SCH (08:19)
[2016-10-07] MEDS: AMIODARONE HCL 200 MG TABLET PO SCH ×2 (08:19→20:23)
[2016-10-07] MEDS: FERROUS SULFATE 325 MG EC TABLET PO SCH ×3 (08:19→18:27)
[2016-10-07] MEDS: FUROSEMIDE 40 MG TABLET PO SCH (08:19)
[2016-10-07] MEDS ORDERED: MECLIZINE HCL 25 MG TABLET PO PRN (09:00)
[2016-10-07] MEDS ORDERED: MECLIZINE HCL 25 MG TABLET PO SCH (09:00)
[2016-10-07 11:21] VITALS: BP 121/61
[2016-10-07 15:40] VITALS: BP 117/58
[2016-10-07 19:31] VITALS: BP 107/56
[2016-10-07] MEDS: SIMVASTATIN 20 MG TABLET PO SCH (20:23)
[2016-10-08] VITALS (7 sets, daily range): BP systolic 110–118; BP diastolic 57–66
[2016-10-08 06:37] LABS: HEMATOCRIT 23.9 % (41-53); HEMOGLOBIN 7.9 g/dL (13.5-17.5); MEAN CORPUSCULAR HEMOGLOBIN 29.7 pg (26.0-34.0); MEAN CORPUSCULAR HGB CONC 33.1 G/dL (31.0-37.0); MEAN CORPUSCULAR VOLUME 90 fL (80-100); PLATELET COUNT (AUTO) 179 K/uL (150-450); RED BLOOD CELL COUNT(AUTO) 2.66 MIL/uL (4.50-5.90); RED CELL DISTRIBUTION WIDTH 18.7 % (11.5-14.5); WHITE BLOOD COUNT (AUTO) 2.5 K/uL (4.5-11.0)
[2016-10-08 07:25] LABS: CALCIUM, TOTAL 8.6 mg/dL (8.8-10.5); CREATININE 1.53 mg/dL (0.60-1.30); MAGNESIUM 2.1 mg/dL (1.80-2.40); POTASSIUM 3.4 mmol/L (3.5-5.1)
[2016-10-08] MEDS: FUROSEMIDE 40 MG TABLET PO SCH (08:53)
[2016-10-08] MEDS: FAMOTIDINE 20 MG TABLET PO SCH (08:53)
[2016-10-08] MEDS: FERROUS SULFATE 325 MG EC TABLET PO SCH ×3 (08:53→18:05)
[2016-10-08] MEDS: AMIODARONE HCL 200 MG TABLET PO SCH ×2 (09:00→20:57)
[2016-10-08] MEDS: ISOSORBIDE MONONITRATE 30 MG ER TABLET PO SCH (09:00)
[2016-10-08 10:28] LABS: BAND NEUTROPHILS % (MANUAL) 22 % (1-5); EOSINOPHILS % (MANUAL) 1 % (1-6); LYMPHOCYTES % (MANUAL) 46 % (22-44); RBC MORPHOLOGY COMMENT ABNORMAL RBC MORPH; TOTAL CELLS COUNTED 100
[2016-10-08] MEDS ORDERED: POTASSIUM CHLORIDE 20 MEQ ER TABLET PO PRN (12:00)
[2016-10-08] MEDS ORDERED: POTASSIUM CHLORIDE 10% 40 MEQ/30 ML LIQUID UDCUP PO PRN (12:00)
[2016-10-08] MEDS: ALLOPURINOL 100 MG TABLET PO SCH (12:06)
[2016-10-08] MEDS: SIMVASTATIN 20 MG TABLET PO SCH (20:57)
[2016-10-08] MEDS: MetroNIDAZOLE 500 MG TABLET PO SCH (20:57)
[2016-10-09 08:01] VITALS: BP 105/57
[2016-10-09] MEDS: FERROUS SULFATE 325 MG EC TABLET PO SCH ×2 (08:29→12:00)
[2016-10-09] MEDS: FUROSEMIDE 40 MG TABLET PO SCH (08:29)
[2016-10-09] MEDS: AMIODARONE HCL 200 MG TABLET PO SCH (08:29)
[2016-10-09] MEDS: FAMOTIDINE 20 MG TABLET PO SCH (08:30)
[2016-10-09] MEDS: ALLOPURINOL 100 MG TABLET PO SCH (08:30)
[2016-10-09] MEDS: MetroNIDAZOLE 500 MG TABLET PO SCH (08:30)
[2016-10-09 11:51] VITALS: BP 102/78
[2016-10-09] MEDS: ISOSORBIDE MONONITRATE 30 MG ER TABLET PO SCH (12:00)
[2016-10-09] MEDS ORDERED: METR500 PO (14:28)
[2016-10-09 15:50] VITALS: BP 110/58
[2016-10-09 17:01] VITALS: BP 137/93
== END 2016-10-09 16:50 | disposition home health service (06) | DRG 683 ==
LOC: EMS 12:45 → 5N 20:00
PROVIDERS: ADMIT Family Medicine; ATTEND Family Medicine
PROC: 0DJ08ZZ Inspection of Upper Intestinal Tract, Via Natural or Artificial Opening Endoscopic (ICD-10-PCS; principal; 2016-10-06 10:00)
DX: I12.9 Hypertensive chronic kidney disease with stage 1 through stage 4 chronic kidney disease, or unspecified chronic kidney disease (principal); E44.1 Mild protein-calorie malnutrition; R53.1 Weakness; K29.70 Gastritis, unspecified, without bleeding; K31.84 Gastroparesis; E78.5 Hyperlipidemia, unspecified; M10.9 Gout, unspecified; I25.10 Atherosclerotic heart disease of native coronary artery without angina pectoris; R19.5 Other fecal abnormalities; E78.00 Pure hypercholesterolemia, unspecified; N18.3 Chronic kidney disease, stage 3 (moderate); D63.8 Anemia in other chronic diseases classified elsewhere; Z98.61 Coronary angioplasty status; Z91.013 Allergy to seafood; Z79.01 Long term (current) use of anticoagulants; Z79.82 Long term (current) use of aspirin; Z79.899 Other long term (current) drug therapy; Z90.49 Acquired absence of other specified parts of digestive tract; Z68.26 Body mass index [BMI] 26.0-26.9, adult
CPT/HCPCS: 82271; 83540; 83550; 83735; 84132; 87324; 87449; 93005; 96374; 97116; 97162; 97166; 97530; 97535; 99285; C9113; J2405; J2704; J7030

== ENCOUNTER 2016-10-21 01:05 | Emergency (ER) | payer MEDICARE ==
[~2016-10-21] VITALS: Ht 160 cm; Wt 78.0 kg
[~2016-10-21 01:05] MED LIST changes: -AMLO10TA55 PO; -APIX2.5T PO; +APIX5TAB PO; +FERR-72 PO; -FURO20TA4 PO; +FURO40 PO; +MECL-111 PO; +METR500 PO
[2016-10-21 02:17] LABS: GLUCOSE,POINT OF CARE 115 MG/DL (70-110)
[2016-10-21 02:59] LABS: BASOPHILS % (AUTO) 0.4 % (0.0-2.0); EOSINOPHILS % (AUTO) 4.4 % (1.0-6.0); HEMATOCRIT 25.9 % (41-53); HEMOGLOBIN 8.5 g/dL (13.5-17.5); LYMPHOCYTES # (AUTO) 0.8 K/uL (1.0-4.8); LYMPHOCYTES % (AUTO) 14.8 % (22.0-44.0); MEAN CORPUSCULAR HEMOGLOBIN 29.7 pg (26.0-34.0); MEAN CORPUSCULAR HGB CONC 32.8 G/dL (31.0-37.0); MEAN CORPUSCULAR VOLUME 91 fL (80-100); MONOCYTES # (AUTO) 0.4 K/uL (0.1-1.0); MONOCYTES % (AUTO) 7.5 % (2.0-9.0); NEUTROPHILS # (AUTO) 4.1 K/uL (1.8-7.7); NEUTROPHILS % (AUTO) 72.9 % (40.0-70.0); PLATELET COUNT (AUTO) 298 K/uL (150-450); RED BLOOD CELL COUNT(AUTO) 2.86 MIL/uL (4.50-5.90); RED CELL DISTRIBUTION WIDTH 19.7 % (11.5-14.5); WHITE BLOOD COUNT (AUTO) 5.7 K/uL (4.5-11.0)
[2016-10-21 03:10] LABS: ANION GAP 7 mmol/L (8-16); CALCIUM, TOTAL 8.9 mg/dL (8.8-10.5); CARBON DIOXIDE 30 mmol/L (22-29); CHLORIDE 105 mmol/L (98-107); CREATININE 1.85 mg/dL (0.60-1.30); GLOMERULAR FILTR. RATE CALC 35 mL/min (>60); POTASSIUM 3.5 mmol/L (3.5-5.1); SODIUM SERUM 142 mmol/L (136-145); UREA NITROGEN, BLOOD 22 mg/dL (7-18)
[2016-10-21 03:16] LABS: ALANINE AMINOTRANSFERASE 22 U/L (12-78); ASPARTATE AMINOTRANSFERASE 20 U/L (15-37); BILIRUBIN,TOTAL 0.3 mg/dL (0.1-1.0); CREATINE KINASE, TOTAL 31 U/L (39-308); TOTAL PROTEIN, SERUM 6.5 g/dL (6.4-8.2)
[2016-10-21 03:50] LABS: B-TYPE NATRIURETIC PEPTIDE 154 pg/mL (0-100)
[2016-10-21 06:55] LABS: APPEARANCE,URINE CLEAR (CLEAR); GLUCOSE, URINE (UA) NEGATIVE (NEGATIVE); KETONES,URINE NEGATIVE (NEGATIVE); LEUKOCYTE ESTERASE ,URINE NEGATIVE (NEGATIVE); OCCULT BLOOD,URINE NEGATIVE (NEGATIVE); PROTEIN,URINE NEGATIVE (NEGATIVE)
[2016-10-21 06:57] LABS: ADD UA MICROSCOPIC NO
[2016-10-21 10:22] VITALS: BP 164/84
[2016-10-21] MEDS ORDERED: DEXAMETHASONE SOD PHOS 4 MG/ML 5 ML VIAL IM ONE (10:45)
== END 2016-10-21 10:55 | disposition home or self-care (01) ==
LOC: EMS 01:10
DX: M54.41 Lumbago with sciatica, right side (principal); R26.2 Difficulty in walking, not elsewhere classified; E78.00 Pure hypercholesterolemia, unspecified; I25.10 Atherosclerotic heart disease of native coronary artery without angina pectoris; I10 Essential (primary) hypertension; Z79.82 Long term (current) use of aspirin; Z79.01 Long term (current) use of anticoagulants; Z88.2 Allergy status to sulfonamides; Z87.891 Personal history of nicotine dependence
CPT/HCPCS: 36415; 70450; 71010; 72192; 73502; 80053; 81003; 82550; 82962; 83880; 84484; 85025; 85610; 85730; 93005; 96372; 99285; J1100

== ENCOUNTER 2016-10-27 08:24 | Emergency (ER) | payer MEDICARE ==
[~2016-10-27] VITALS: Ht 165.1 cm; Wt 64.1 kg
[2016-10-27] MEDS ORDERED: HYDR-309 PO (08:37)
[2016-10-27] MEDS ORDERED: MORPHINE SULFATE 4 MG/ML SYRINGE IVP ONE (09:00)
[2016-10-27 09:02] LABS: GLUCOSE,POINT OF CARE 105 MG/DL (70-110)
[2016-10-27 09:47] VITALS: BP 174/86
== END 2016-10-27 10:43 | disposition home or self-care (01) ==
LOC: EMS 08:25
DX: G89.29 Other chronic pain (principal); M54.5 Low back pain; I10 Essential (primary) hypertension; I25.10 Atherosclerotic heart disease of native coronary artery without angina pectoris; M10.9 Gout, unspecified; Z79.82 Long term (current) use of aspirin; E78.00 Pure hypercholesterolemia, unspecified; Z79.01 Long term (current) use of anticoagulants; Z91.013 Allergy to seafood
CPT/HCPCS: 82948; 82962; 96374; 99284; J2270

== ENCOUNTER 2017-03-03 13:38 | Inpatient (IN) | payer MEDICARE, MEDICAID ==
[~2017-03-03] VITALS: Ht 167.6 cm; Wt 68.1 kg
[~2017-03-03 13:38] MED LIST changes: -ASPI81TA2 PO; +ASPI81TA39 PO; -FERR-72 PO; +FERR325T22 PO; +HYDR-309 PO
[2017-03-03] MEDS ORDERED: ONDANSETRON HCL 4 MG/2 ML VIAL IVP ONE (14:45)
[2017-03-03] MEDS ORDERED: SODIUM CHLORIDE 0.9% 1,000 ML IV ONE ×2 (14:45→16:00)
[2017-03-03 15:06] LABS: BASOPHILS # (AUTO) 0.02 K/uL (0.00-0.20); BASOPHILS % (AUTO) 0.2 % (0.0-2.0); EOSINOPHILS # (AUTO) 0.01 K/uL (0.00-0.70); EOSINOPHILS % (AUTO) 0.09 % (1.0-6.0); HEMATOCRIT 38.4 % (41-53); HEMOGLOBIN 12.6 g/dL (13.5-17.5); LYMPHOCYTES # (AUTO) 0.8 K/uL (1.0-4.8); LYMPHOCYTES % (AUTO) 5.9 % (22.0-44.0); MEAN CORPUSCULAR HEMOGLOBIN 30.1 pg (26.0-34.0); MEAN CORPUSCULAR HGB CONC 32.8 G/dL (31.0-37.0); MEAN CORPUSCULAR VOLUME 92 fL (80-100); MONOCYTES # (AUTO) 0.7 K/uL (0.1-1.0); MONOCYTES % (AUTO) 5.3 % (2.0-9.0); NEUTROPHILS # (AUTO) 11.2 K/uL (1.8-7.7); PLATELET COUNT (AUTO) 225 K/uL (150-450); RED CELL DISTRIBUTION WIDTH 16.8 % (11.5-14.5); WHITE BLOOD COUNT (AUTO) 12.7 K/uL (4.5-11.0)
[2017-03-03 15:07] LABS: NEUTROPHILS % (AUTO) 88.6 % (40.0-70.0)
[2017-03-03 15:18] LABS: ANION GAP 10 mmol/L (8-16); CALCIUM, TOTAL 9.5 mg/dL (8.8-10.5); CARBON DIOXIDE 32 mmol/L (22-29); CHLORIDE 99 mmol/L (98-107); CREATININE 1.51 mg/dL (0.60-1.30); GLOMERULAR FILTR. RATE CALC 44 mL/min (>60); POTASSIUM 3.9 mmol/L (3.5-5.1); SODIUM SERUM 141 mmol/L (136-145); UREA NITROGEN, BLOOD 19 mg/dL (7-18)
[2017-03-03 15:25] LABS: INR 1.1 (0.9-1.1); PROTHROMBIN TIME 11.2 SEC (9.4-11.6)
[2017-03-03 15:43] LABS: ALANINE AMINOTRANSFERASE 87 U/L (12-78); ASPARTATE AMINOTRANSFERASE 69 U/L (15-37); BILIRUBIN,TOTAL 0.9 mg/dL (0.1-1.0); CREATINE KINASE MB 0.7 ng/mL (0-5); CREATINE KINASE, TOTAL 89 U/L (39-308); TOTAL PROTEIN, SERUM 8.8 g/dL (6.4-8.2)
[2017-03-03 16:00] LABS: LACTIC ACID 2.2 mmol/L (0.4-2.0)
[2017-03-03] MEDS ORDERED: AZITHROMYCIN 500 MG/NS 250 ML IV ONE (16:00)
[2017-03-03] MEDS ORDERED: CefTRIAXone 1 GM/DEXTROSE 50 ML IV ONE (16:00)
[2017-03-03] MEDS ORDERED: SODIUM CHLORIDE 0.9% 500 ML IV ONE (16:30)
[2017-03-03 17:00] LABS: REFLEX LACTIC ACID? YES YES
[2017-03-03] MEDS ORDERED: ONDANSETRON HCL 4 MG/2 ML VIAL IVP PRN (17:00)
[2017-03-03 17:39] LABS: APPEARANCE,URINE CLEAR (CLEAR); GLUCOSE, URINE (UA) NEGATIVE (NEGATIVE); KETONES,URINE NEGATIVE (NEGATIVE); LEUKOCYTE ESTERASE ,URINE NEGATIVE (NEGATIVE); OCCULT BLOOD,URINE SMALL (NEGATIVE); PH,URINE 6.5 (5.0-8.0); PROTEIN,URINE POS 1+ (NEGATIVE)
[2017-03-03 17:40] LABS: ADD UA MICROSCOPIC YES
[2017-03-03 18:10] LABS: SQUAMOUS EPITHELIAL CELL,UR Rare /LPF (None Seen)
[2017-03-03 18:13] LABS: WBC,URINE 0-2 /HPF (0-5)
[2017-03-03 20:14] VITALS: BP 115/73
[2017-03-03] MEDS: ACETAMINOPHEN 325 MG TABLET PO PRN (21:03)
[2017-03-03 23:48] VITALS: BP 119/71
[2017-03-04 04:14] VITALS: BP 143/71
[2017-03-04] MEDS: ACETAMINOPHEN 325 MG TABLET PO PRN (04:27)
[2017-03-04 08:09] VITALS: BP 147/75
[2017-03-04 11:49] VITALS: BP 131/63
[2017-03-04 12:03] LABS: ABG A-A DIFF O2 108.2 mmHg (10-20.0); ABG BASE EXCESS 9.4 mmol/L (-2.0-3.0); ABG HCO3 31.9 mmol/L (22.0-26.0); ABG OXYHEMOGLOBIN 91.3 % (94.0-100.0); ABG PCO2 48 mmHg (35-45); ABG PH 7.461 (7.35-7.450); TEMPERATURE, FAHRENHEIT, BG 98.3 FAHREN (96.0-98.6)
[2017-03-04 12:04] LABS: ALLEN TEST, BLOOD GAS Positive
[2017-03-04 12:16] LABS: BASOPHILS # (AUTO) 0.01 K/uL (0.00-0.20); BASOPHILS % (AUTO) 0.1 % (0.0-2.0); EOSINOPHILS % (AUTO) 0.01 % (1.0-6.0); HEMATOCRIT 33.6 % (41-53); HEMOGLOBIN 11.1 g/dL (13.5-17.5); LYMPHOCYTES # (AUTO) 0.6 K/uL (1.0-4.8); LYMPHOCYTES % (AUTO) 4.5 % (22.0-44.0); MEAN CORPUSCULAR HEMOGLOBIN 30.2 pg (26.0-34.0); MEAN CORPUSCULAR VOLUME 91 fL (80-100); MONOCYTES # (AUTO) 0.4 K/uL (0.1-1.0); MONOCYTES % (AUTO) 3.4 % (2.0-9.0); NEUTROPHILS # (AUTO) 11.9 K/uL (1.8-7.7); PLATELET COUNT (AUTO) 176 K/uL (150-450); RED BLOOD CELL COUNT(AUTO) 3.67 MIL/uL (4.50-5.90); RED CELL DISTRIBUTION WIDTH 16.8 % (11.5-14.5); WHITE BLOOD COUNT (AUTO) 12.9 K/uL (4.5-11.0)
[2017-03-04 12:18] LABS: NEUTROPHILS % (AUTO) 92.1 % (40.0-70.0)
[2017-03-04] MEDS: LEVOFLOXACIN 500 MG/D5% WATER 100 ML IV SCH (12:19)
[2017-03-04] MEDS: SODIUM CHLORIDE 0.45% 1,000 ML IV SCH ×2 (12:19→22:02)
[2017-03-04 12:26] LABS: CALCIUM, TOTAL 8.5 mg/dL (8.8-10.5); CREATININE 1.3 mg/dL (0.60-1.30); POTASSIUM 3.4 mmol/L (3.5-5.1)
[2017-03-04 12:39] LABS: RBC MORPHOLOGY COMMENT ABNORMAL RBC MORPH
[2017-03-04 15:34] VITALS: BP 109/60
[2017-03-04] MEDS: HydrOXYzine HCL 25 MG TABLET PO SCH ×2 (15:44→20:12)
[2017-03-04] MEDS: MetroNIDAZOLE 500 MG TABLET PO SCH ×2 (15:45→20:12)
[2017-03-04] MEDS: FUROSEMIDE 40 MG TABLET PO SCH (15:45)
[2017-03-04] MEDS ORDERED: CefTRIAXone 1 GM/DEXTROSE 50 ML IV SCH (16:00)
[2017-03-04] MEDS: FERROUS SULFATE 325 MG EC TABLET PO SCH (19:03)
[2017-03-04 19:47] VITALS: BP 111/59
[2017-03-04] MEDS: SIMVASTATIN 20 MG TABLET PO SCH (20:12)
[2017-03-04] MEDS: AMIODARONE HCL 200 MG TABLET PO SCH (20:12)
[2017-03-04 23:58] VITALS: BP 118/62
[2017-03-05 04:41] VITALS: BP 120/61
[2017-03-05 06:13] LABS: BASOPHILS % (AUTO) 0.1 % (0.0-2.0); EOSINOPHILS % (AUTO) 1.7 % (1.0-6.0); HEMATOCRIT 29.9 % (41-53); HEMOGLOBIN 10.1 g/dL (13.5-17.5); LYMPHOCYTES # (AUTO) 0.7 K/uL (1.0-4.8); LYMPHOCYTES % (AUTO) 8.1 % (22.0-44.0); MEAN CORPUSCULAR HEMOGLOBIN 32.1 pg (26.0-34.0); MEAN CORPUSCULAR HGB CONC 33.8 G/dL (31.0-37.0); MEAN CORPUSCULAR VOLUME 95 fL (80-100); MONOCYTES # (AUTO) 0.5 K/uL (0.1-1.0); NEUTROPHILS % (AUTO) 84.1 % (40.0-70.0); PLATELET COUNT (AUTO) 154 K/uL (150-450); RED BLOOD CELL COUNT(AUTO) 3.15 MIL/uL (4.50-5.90); RED CELL DISTRIBUTION WIDTH 16.5 % (11.5-14.5); WHITE BLOOD COUNT (AUTO) 8.3 K/uL (4.5-11.0)
[2017-03-05 06:45] LABS: ALBUMIN 2.4 g/dL (3.4-5.0); BILIRUBIN,TOTAL 0.9 mg/dL (0.1-1.0); CALCIUM, TOTAL 8.2 mg/dL (8.8-10.5); CREATININE 1.52 mg/dL (0.60-1.30); MAGNESIUM 2.1 mg/dL (1.80-2.40); POTASSIUM 3.3 mmol/L (3.5-5.1); TOTAL PROTEIN, SERUM 5.7 g/dL (6.4-8.2)
[2017-03-05 07:40] VITALS: BP 138/50
[2017-03-05] MEDS ORDERED: POTASSIUM CHL 10 MEQ/WATER 50 ML IV PRN (08:30)
[2017-03-05] MEDS: FERROUS SULFATE 325 MG EC TABLET PO SCH ×3 (08:57→17:59)
[2017-03-05] MEDS: MetroNIDAZOLE 500 MG TABLET PO SCH ×3 (08:57→20:42)
[2017-03-05] MEDS: SODIUM CHLORIDE 0.45% 1,000 ML IV SCH ×2 (08:57→17:59)
[2017-03-05] MEDS: MECLIZINE HCL 25 MG TABLET PO SCH (08:58)
[2017-03-05] MEDS: ALLOPURINOL 100 MG TABLET PO SCH (08:58)
[2017-03-05] MEDS: FUROSEMIDE 40 MG TABLET PO SCH (08:58)
[2017-03-05] MEDS: HydrOXYzine HCL 25 MG TABLET PO SCH ×3 (08:58→20:42)
[2017-03-05] MEDS: FAMOTIDINE 20 MG TABLET PO SCH (08:58)
[2017-03-05] MEDS: ISOSORBIDE MONONITRATE 30 MG ER TABLET PO SCH (08:58)
[2017-03-05] MEDS: ASPIRIN 81 MG CHEWABLE TABLET PO SCH (08:58)
[2017-03-05] MEDS: AMIODARONE HCL 200 MG TABLET PO SCH ×2 (08:59→20:42)
[2017-03-05] MEDS: PANTOPRAZOLE SODIUM 40 MG DR TABLET PO SCH (08:59)
[2017-03-05 11:44] VITALS: BP 117/53
[2017-03-05] MEDS: LEVOFLOXACIN 500 MG/D5% WATER 100 ML IV SCH (12:01)
[2017-03-05] MEDS: POTASSIUM CHLORIDE 20 MEQ ER TABLET PO PRN ×2 (16:07→22:18)
[2017-03-05 16:08] VITALS: BP 122/68
[2017-03-05 19:40] VITALS: BP 118/60
[2017-03-05] MEDS: SIMVASTATIN 20 MG TABLET PO SCH (20:42)
[2017-03-05 23:36] VITALS: BP 124/62
[2017-03-06 04:53] VITALS: BP 139/67
[2017-03-06] MEDS: SODIUM CHLORIDE 0.45% 1,000 ML IV SCH ×2 (06:17→14:09)
[2017-03-06 07:32] VITALS: BP 128/69
[2017-03-06] MEDS: FERROUS SULFATE 325 MG EC TABLET PO SCH ×4 (08:00→18:20)
[2017-03-06] MEDS: ISOSORBIDE MONONITRATE 30 MG ER TABLET PO SCH (08:46)
[2017-03-06] MEDS: FUROSEMIDE 40 MG TABLET PO SCH (08:46)
[2017-03-06] MEDS: ASPIRIN 81 MG CHEWABLE TABLET PO SCH (08:46)
[2017-03-06] MEDS: AMIODARONE HCL 200 MG TABLET PO SCH ×2 (08:47→20:29)
[2017-03-06] MEDS: FAMOTIDINE 20 MG TABLET PO SCH ×2 (08:47→09:00)
[2017-03-06] MEDS: PANTOPRAZOLE SODIUM 40 MG DR TABLET PO SCH (08:47)
[2017-03-06] MEDS: MetroNIDAZOLE 500 MG TABLET PO SCH ×3 (08:47→20:29)
[2017-03-06] MEDS: ALLOPURINOL 100 MG TABLET PO SCH ×2 (08:48→09:00)
[2017-03-06] MEDS: HydrOXYzine HCL 25 MG TABLET PO SCH ×3 (08:48→20:29)
[2017-03-06] MEDS: MECLIZINE HCL 25 MG TABLET PO SCH ×2 (08:48→09:00)
[2017-03-06] MEDS: LEVOFLOXACIN 500 MG/D5% WATER 100 ML IV SCH (12:36)
[2017-03-06] MEDS: HYDROCODONE/ACETAMINOPHEN 5-325 MG TABLET PO PRN ×2 (13:57→20:29)
[2017-03-06 14:42] VITALS: BP 101/61
[2017-03-06 19:54] VITALS: BP 141/77
[2017-03-06] MEDS: SIMVASTATIN 20 MG TABLET PO SCH (20:29)
[2017-03-06] MEDS ORDERED: DiphenhydrAMINE HCL 25 MG CAPSULE PO PRN (22:00)
[2017-03-06 22:19] LABS: MYCOPLASMA AB IGG 951 U/mL (0-99)
[2017-03-07] MEDS: SODIUM CHLORIDE 0.45% 1,000 ML IV SCH ×2 (00:16→09:47)
[2017-03-07 00:38] VITALS: BP 152/79
[2017-03-07 04:00] VITALS: BP 138/76
[2017-03-07 06:55] LABS: BASOPHILS # (AUTO) 0.02 K/uL (0.00-0.20); BASOPHILS % (AUTO) 0.3 % (0.0-2.0); EOSINOPHILS # (AUTO) 0.17 K/uL (0.00-0.70); HEMATOCRIT 29.5 % (41-53); HEMOGLOBIN 9.8 g/dL (13.5-17.5); LYMPHOCYTES # (AUTO) 0.4 K/uL (1.0-4.8); LYMPHOCYTES % (AUTO) 7.5 % (22.0-44.0); MEAN CORPUSCULAR HEMOGLOBIN 30.8 pg (26.0-34.0); MEAN CORPUSCULAR HGB CONC 33.2 G/dL (31.0-37.0); MEAN CORPUSCULAR VOLUME 93 fL (80-100); MONOCYTES # (AUTO) 0.6 K/uL (0.1-1.0); MONOCYTES % (AUTO) 10.3 % (2.0-9.0); NEUTROPHILS # (AUTO) 4.3 K/uL (1.8-7.7); NEUTROPHILS % (AUTO) 78.8 % (40.0-70.0); PLATELET COUNT (AUTO) 162 K/uL (150-450); RED BLOOD CELL COUNT(AUTO) 3.18 MIL/uL (4.50-5.90); RED CELL DISTRIBUTION WIDTH 16.5 % (11.5-14.5); WHITE BLOOD COUNT (AUTO) 5.5 K/uL (4.5-11.0)
[2017-03-07 07:09] VITALS: BP 139/85
[2017-03-07 07:15] LABS: CALCIUM, TOTAL 8.1 mg/dL (8.8-10.5); CREATININE 1.35 mg/dL (0.60-1.30); POTASSIUM 3.3 mmol/L (3.5-5.1)
[2017-03-07] MEDS: MECLIZINE HCL 25 MG TABLET PO SCH (09:35)
[2017-03-07] MEDS: ISOSORBIDE MONONITRATE 30 MG ER TABLET PO SCH (09:35)
[2017-03-07] MEDS: FERROUS SULFATE 325 MG EC TABLET PO SCH ×2 (09:36→12:23)
[2017-03-07] MEDS: POTASSIUM CHLORIDE 20 MEQ ER TABLET PO PRN (09:36)
[2017-03-07] MEDS: HydrOXYzine HCL 25 MG TABLET PO SCH (09:36)
[2017-03-07] MEDS: PANTOPRAZOLE SODIUM 40 MG DR TABLET PO SCH (09:36)
[2017-03-07] MEDS: HYDROCODONE/ACETAMINOPHEN 5-325 MG TABLET PO PRN (09:36)
[2017-03-07] MEDS: AMIODARONE HCL 200 MG TABLET PO SCH (09:36)
[2017-03-07] MEDS: ALLOPURINOL 100 MG TABLET PO SCH (09:36)
[2017-03-07] MEDS: ASPIRIN 81 MG CHEWABLE TABLET PO SCH (09:36)
[2017-03-07] MEDS: FAMOTIDINE 20 MG TABLET PO SCH (09:36)
[2017-03-07] MEDS: FUROSEMIDE 40 MG TABLET PO SCH (09:36)
[2017-03-07] MEDS: MetroNIDAZOLE 500 MG TABLET PO SCH (09:36)
[2017-03-07 11:24] VITALS: BP 151/81
[2017-03-07] MEDS: LEVOFLOXACIN 500 MG/D5% WATER 100 ML IV SCH (12:23)
[2017-03-07 15:05] VITALS: BP 132/79
[2017-03-07 17:29] LABS: ORGANISM ID Not indicated.
== END 2017-03-07 17:05 | DRG 871 ==
LOC: EMS 13:39 → 5S 18:23
PROVIDERS: ADMIT Family Medicine; ATTEND Family Medicine
DX: A41.9 Sepsis, unspecified organism (principal); N17.0 Acute kidney failure with tubular necrosis; J69.0 Pneumonitis due to inhalation of food and vomit; G93.41 Metabolic encephalopathy; M54.5 Low back pain; R09.02 Hypoxemia; I12.9 Hypertensive chronic kidney disease with stage 1 through stage 4 chronic kidney disease, or unspecified chronic kidney disease; I25.10 Atherosclerotic heart disease of native coronary artery without angina pectoris; D63.8 Anemia in other chronic diseases classified elsewhere; E78.5 Hyperlipidemia, unspecified; E78.00 Pure hypercholesterolemia, unspecified; E87.6 Hypokalemia; G89.29 Other chronic pain; M10.9 Gout, unspecified; N18.9 Chronic kidney disease, unspecified; Z78.9 Other specified health status; Z90.49 Acquired absence of other specified parts of digestive tract; Z95.5 Presence of coronary angioplasty implant and graft; Z86.73 Personal history of transient ischemic attack (TIA), and cerebral infarction without residual deficits
CPT/HCPCS: 70450; 71250; 82805; 83605; 83735; 84132; 87040; 87449; 87798; 87899; 92610; 93005; 96361; 96374; 96375; 97162; 97167; 97530; 97535; 99291; J0456; J0696; J1956; J2405; J7030

== ENCOUNTER 2017-04-02 15:17 | Inpatient (IN) | payer MEDICARE, MEDICAID ==
[~2017-04-02] VITALS: Ht 157.5 cm; Wt 62.1 kg
[2017-04-02] MEDS ORDERED: METR500 PO (15:32)
[2017-04-02 15:41] LABS: GLUCOSE,POINT OF CARE 213 MG/DL (70-110)
[2017-04-02 16:18] LABS: HEMATOCRIT 37.6 % (41-53); HEMOGLOBIN 12.5 g/dL (13.5-17.5); MEAN CORPUSCULAR HGB CONC 33.2 G/dL (31.0-37.0); MEAN CORPUSCULAR VOLUME 93 fL (80-100); PLATELET COUNT (AUTO) 126 K/uL (150-450); RED BLOOD CELL COUNT(AUTO) 4.03 MIL/uL (4.50-5.90); RED CELL DISTRIBUTION WIDTH 18.6 % (11.5-14.5); WHITE BLOOD COUNT (AUTO) 7.3 K/uL (4.5-11.0)
[2017-04-02 16:35] LABS: ALANINE AMINOTRANSFERASE 51 U/L (12-78); ALBUMIN 2.6 g/dL (3.4-5.0); ANION GAP 10 mmol/L (8-16); ASPARTATE AMINOTRANSFERASE 49 U/L (15-37); CALCIUM, TOTAL 8.6 mg/dL (8.8-10.5); CARBON DIOXIDE 33 mmol/L (22-29); CHLORIDE 124 mmol/L (98-107); CREATINE KINASE, TOTAL 27 U/L (39-308); CREATININE 3.63 mg/dL (0.60-1.30); GLOMERULAR FILTR. RATE CALC 16 mL/min (>60); POTASSIUM 3.5 mmol/L (3.5-5.1); TOTAL PROTEIN, SERUM 6.9 g/dL (6.4-8.2); UREA NITROGEN, BLOOD 78 mg/dL (7-18)
[2017-04-02 16:38] LABS: B-TYPE NATRIURETIC PEPTIDE 67 pg/mL (0-100)
[2017-04-02 16:42] LABS: SODIUM SERUM 167 mmol/L (136-145)
[2017-04-02] MEDS ORDERED: ACETAMINOPHEN 650 MG/ISO-OSM 65 ML IV ONE (16:45)
[2017-04-02 16:46] LABS: BAND NEUTROPHILS % (MANUAL) 19 % (1-5); EOSINOPHILS % (MANUAL) 1 % (1-6); LYMPHOCYTES % (MANUAL) 9 % (22-44); RBC MORPHOLOGY COMMENT ABNORMAL RBC MORPH; TOTAL CELLS COUNTED 100
[2017-04-02 16:59] LABS: LACTIC ACID 3.3 mmol/L (0.4-2.0)
[2017-04-02] MEDS ORDERED: PIPERACILLIN/TAZO 3.375 GM/D5W 50 ML IV ONE (17:00)
[2017-04-02] MEDS ORDERED: SODIUM CHLORIDE 0.9% 1,000 ML IV ONE ×2 (17:00→17:15)
[2017-04-02 17:07] LABS: GLUCOSE, URINE (UA) NEGATIVE (NEGATIVE); KETONES,URINE NEGATIVE (NEGATIVE); LEUKOCYTE ESTERASE ,URINE NEGATIVE (NEGATIVE); OCCULT BLOOD,URINE NEGATIVE (NEGATIVE); PH,URINE 5.5 (5.0-8.0); PROTEIN,URINE TRACE (NEGATIVE)
[2017-04-02 17:08] LABS: ADD UA MICROSCOPIC YES; APPEARANCE,URINE HAZY (CLEAR)
[2017-04-02 17:09] LABS: OSMOLALITY 376 mOS/kg (270-310)
[2017-04-02 17:16] LABS: RBC,URINE None Seen /HPF (0-2); WBC,URINE None Seen /HPF (0-5)
[2017-04-02 18:13] LABS: REFLEX LACTIC ACID? YES YES
[2017-04-02] MEDS ORDERED: ACETAMINOPHEN 325 MG TABLET PO PRN (18:45)
[2017-04-02] MEDS ORDERED: 0.9% SODIUM CHLORIDE 10 ML SYRINGE IVP PRN (18:45)
[2017-04-02 22:27] VITALS: BP 99/53
[2017-04-02] MEDS ORDERED: HYDROCODONE/ACETAMINOPHEN 5-325 MG TABLET PO PRN (22:45)
[2017-04-03 04:14] VITALS: BP 94/53
[2017-04-03 06:32] LABS: ALBUMIN 2.1 g/dL (3.4-5.0); BILIRUBIN,TOTAL 1.5 mg/dL (0.1-1.0); CALCIUM, TOTAL 8.3 mg/dL (8.8-10.5); CREATININE 3.17 mg/dL (0.60-1.30); MAGNESIUM 2.8 mg/dL (1.80-2.40); POTASSIUM 3.2 mmol/L (3.5-5.1)
[2017-04-03 06:35] LABS: BASOPHILS % (AUTO) 0.1 % (0.0-2.0); EOSINOPHILS % (AUTO) 0.4 % (1.0-6.0); HEMOGLOBIN 10.9 g/dL (13.5-17.5); LYMPHOCYTES # (AUTO) 0.4 K/uL (1.0-4.8); LYMPHOCYTES % (AUTO) 6.4 % (22.0-44.0); MEAN CORPUSCULAR HGB CONC 34.1 G/dL (31.0-37.0); MEAN CORPUSCULAR VOLUME 100 fL (80-100); MONOCYTES # (AUTO) 0.2 K/uL (0.1-1.0); MONOCYTES % (AUTO) 3.4 % (2.0-9.0); NEUTROPHILS # (AUTO) 5.9 K/uL (1.8-7.7); PLATELET COUNT (AUTO) 100 K/uL (150-450); RED BLOOD CELL COUNT(AUTO) 3.21 MIL/uL (4.50-5.90); RED CELL DISTRIBUTION WIDTH 18.3 % (11.5-14.5); WHITE BLOOD COUNT (AUTO) 6.6 K/uL (4.5-11.0)
[2017-04-03 06:50] LABS: NEUTROPHILS % (AUTO) 89.7 % (40.0-70.0)
[2017-04-03 07:23] VITALS: BP 114/54
[2017-04-03] MEDS: IPRATROPIUM BROMIDE 0.5 MG/2.5 ML NEB SOLUTION NEB SCH ×3 (08:09→14:24)
[2017-04-03] MEDS: ALBUTEROL SULFATE 2.5 MG/0.5 ML NEB SOLUTION NEB SCH ×3 (08:09→14:24)
[2017-04-03] MEDS: AMIODARONE HCL 200 MG TABLET PO SCH ×2 (08:56→20:27)
[2017-04-03] MEDS: PANTOPRAZOLE SODIUM 40 MG DR TABLET PO SCH (08:58)
[2017-04-03] MEDS: ASPIRIN 81 MG CHEWABLE TABLET PO SCH (08:58)
[2017-04-03] MEDS: FERROUS SULFATE 325 MG EC TABLET PO SCH ×3 (08:58→17:38)
[2017-04-03] MEDS: MECLIZINE HCL 25 MG TABLET PO SCH (08:59)
[2017-04-03] MEDS: MetroNIDAZOLE 500 MG TABLET PO SCH ×4 (08:59→23:31)
[2017-04-03] MEDS: FAMOTIDINE 20 MG TABLET PO SCH (08:59)
[2017-04-03] MEDS: HydrOXYzine HCL 25 MG TABLET PO SCH ×3 (09:00→20:27)
[2017-04-03] MEDS: ALLOPURINOL 100 MG TABLET PO SCH (09:00)
[2017-04-03] MEDS: ISOSORBIDE MONONITRATE 30 MG ER TABLET PO SCH (09:01)
[2017-04-03 10:52] VITALS: BP 105/53
[2017-04-03] MEDS ORDERED: DEXTROSE 5%-WATER 1,000 ML IV SCH (14:45)
[2017-04-03] MEDS ORDERED: IPRATROPIUM BROMIDE 0.5 MG/2.5 ML NEB SOLUTION NEB PRN (15:00)
[2017-04-03] MEDS ORDERED: ALBUTEROL SULFATE 2.5 MG/0.5 ML NEB SOLUTION NEB PRN (15:00)
[2017-04-03 15:28] VITALS: BP 102/53
[2017-04-03] MEDS: PIPERACILLIN/TAZO 3.375 GM/D5W 50 ML IV SCH ×2 (17:38→23:31)
[2017-04-03 19:40] VITALS: BP 100/59
[2017-04-03] MEDS: SIMVASTATIN 20 MG TABLET PO SCH (20:27)
[2017-04-03 20:35] LABS: CALCIUM, TOTAL 8.8 mg/dL (8.8-10.5); CREATININE 3.1 mg/dL (0.60-1.30); POTASSIUM 3.5 mmol/L (3.5-5.1)
[2017-04-04] MEDS: PIPERACILLIN/TAZO 3.375 GM/D5W 50 ML IV SCH ×4 (04:50→23:19)
[2017-04-04] MEDS: DEXTROSE 5%-WATER 1,000 ML IV SCH ×3 (04:51→23:19)
[2017-04-04 05:38] VITALS: BP 114/52
[2017-04-04 07:35] VITALS: BP 109/54
[2017-04-04 07:46] LABS: BASOPHILS # (AUTO) 0.01 K/uL (0.00-0.20); BASOPHILS % (AUTO) 0.2 % (0.0-2.0); EOSINOPHILS # (AUTO) 0.08 K/uL (0.00-0.70); EOSINOPHILS % (AUTO) 1.25 % (1.0-6.0); HEMATOCRIT 32.1 % (41-53); HEMOGLOBIN 10.5 g/dL (13.5-17.5); LYMPHOCYTES # (AUTO) 0.4 K/uL (1.0-4.8); LYMPHOCYTES % (AUTO) 5.7 % (22.0-44.0); MEAN CORPUSCULAR HGB CONC 32.5 G/dL (31.0-37.0); MEAN CORPUSCULAR VOLUME 95 fL (80-100); MONOCYTES # (AUTO) 0.3 K/uL (0.1-1.0); MONOCYTES % (AUTO) 4.2 % (2.0-9.0); NEUTROPHILS # (AUTO) 5.6 K/uL (1.8-7.7); RED BLOOD CELL COUNT(AUTO) 3.37 MIL/uL (4.50-5.90); RED CELL DISTRIBUTION WIDTH 18.9 % (11.5-14.5); WHITE BLOOD COUNT (AUTO) 6.3 K/uL (4.5-11.0)
[2017-04-04 07:48] LABS: NEUTROPHILS % (AUTO) 88.7 % (40.0-70.0); PLATELET COUNT (AUTO) 93 K/uL (150-450); RBC MORPHOLOGY COMMENT ABNORMAL RBC MORPH
[2017-04-04 08:03] LABS: CALCIUM, TOTAL 8.5 mg/dL (8.8-10.5); CREATININE 2.75 mg/dL (0.60-1.30); MAGNESIUM 2.9 mg/dL (1.80-2.40); POTASSIUM 3.3 mmol/L (3.5-5.1)
[2017-04-04 08:04] LABS: HEMOGLOBIN A1C 6.3 % (4.5-6.2)
[2017-04-04] MEDS: MECLIZINE HCL 25 MG TABLET PO SCH (08:27)
[2017-04-04] MEDS: ASPIRIN 81 MG CHEWABLE TABLET PO SCH (08:27)
[2017-04-04] MEDS: MetroNIDAZOLE 500 MG TABLET PO SCH ×2 (08:27→18:30)
[2017-04-04] MEDS: FERROUS SULFATE 325 MG EC TABLET PO SCH ×3 (08:27→18:30)
[2017-04-04 08:28] LABS: ALBUMIN 1.9 g/dL (3.4-5.0); BILIRUBIN,TOTAL 1.3 mg/dL (0.1-1.0); TOTAL PROTEIN, SERUM 5.7 g/dL (6.4-8.2)
[2017-04-04] MEDS: PANTOPRAZOLE SODIUM 40 MG DR TABLET PO SCH (08:28)
[2017-04-04] MEDS: ISOSORBIDE MONONITRATE 30 MG ER TABLET PO SCH (08:28)
[2017-04-04] MEDS: AMIODARONE HCL 200 MG TABLET PO SCH ×3 (08:28→20:48)
[2017-04-04] MEDS: HydrOXYzine HCL 25 MG TABLET PO SCH ×3 (08:28→20:47)
[2017-04-04] MEDS: FAMOTIDINE 20 MG TABLET PO SCH (08:28)
[2017-04-04] MEDS: ALLOPURINOL 100 MG TABLET PO SCH (08:29)
[2017-04-04 11:22] VITALS: BP 108/52
[2017-04-04 15:04] VITALS: BP 105/54
[2017-04-04 19:58] VITALS: BP 104/55
[2017-04-04] MEDS: MUPIROCIN CALCIUM 2% 22 GM OINTMENT TP SCH (20:47)
[2017-04-04] MEDS: SIMVASTATIN 20 MG TABLET PO SCH (20:47)
[2017-04-05] VITALS (7 sets, daily range): BP systolic 101–115; BP diastolic 53–62
[2017-04-05] MEDS: MetroNIDAZOLE 500 MG TABLET PO SCH ×3 (00:53→17:09)
[2017-04-05] MEDS: PIPERACILLIN/TAZO 3.375 GM/D5W 50 ML IV SCH ×3 (04:54→17:09)
[2017-04-05 07:25] LABS: CALCIUM, TOTAL 8.7 mg/dL (8.8-10.5); CREATININE 2.61 mg/dL (0.60-1.30); POTASSIUM 3.3 mmol/L (3.5-5.1)
[2017-04-05] MEDS: ISOSORBIDE MONONITRATE 30 MG ER TABLET PO SCH (09:50)
[2017-04-05] MEDS: ALLOPURINOL 100 MG TABLET PO SCH (09:52)
[2017-04-05] MEDS: AMIODARONE HCL 200 MG TABLET PO SCH ×2 (09:52→20:09)
[2017-04-05] MEDS: MECLIZINE HCL 25 MG TABLET PO SCH (09:53)
[2017-04-05] MEDS: ASPIRIN 81 MG CHEWABLE TABLET PO SCH (09:54)
[2017-04-05] MEDS: HydrOXYzine HCL 25 MG TABLET PO SCH ×3 (09:54→20:09)
[2017-04-05] MEDS: FAMOTIDINE 20 MG TABLET PO SCH (09:54)
[2017-04-05] MEDS: FERROUS SULFATE 325 MG EC TABLET PO SCH ×3 (09:55→17:09)
[2017-04-05] MEDS: MUPIROCIN CALCIUM 2% 22 GM OINTMENT TP SCH ×2 (09:55→20:09)
[2017-04-05] MEDS: DEXTROSE 5%-WATER 1,000 ML IV SCH (11:11)
[2017-04-05] MEDS: SIMVASTATIN 20 MG TABLET PO SCH (20:09)
[2017-04-06] MEDS: MetroNIDAZOLE 500 MG TABLET PO SCH ×4 (00:03→23:54)
[2017-04-06] MEDS: PIPERACILLIN/TAZO 3.375 GM/D5W 50 ML IV SCH ×5 (00:03→23:47)
[2017-04-06] MEDS: DEXTROSE 5%-WATER 1,000 ML IV SCH ×2 (00:03→11:42)
[2017-04-06 04:19] VITALS: BP 105/55
[2017-04-06 07:16] VITALS: BP 103/57
[2017-04-06] MEDS: MUPIROCIN CALCIUM 2% 22 GM OINTMENT TP SCH ×2 (08:41→20:08)
[2017-04-06] MEDS: ALLOPURINOL 100 MG TABLET PO SCH (08:42)
[2017-04-06] MEDS: FERROUS SULFATE 325 MG EC TABLET PO SCH ×3 (08:42→17:55)
[2017-04-06] MEDS: FAMOTIDINE 20 MG TABLET PO SCH (08:42)
[2017-04-06] MEDS: HydrOXYzine HCL 25 MG TABLET PO SCH ×3 (08:42→20:07)
[2017-04-06] MEDS: ISOSORBIDE MONONITRATE 30 MG ER TABLET PO SCH (08:42)
[2017-04-06] MEDS: MECLIZINE HCL 25 MG TABLET PO SCH (08:43)
[2017-04-06] MEDS: AMIODARONE HCL 200 MG TABLET PO SCH ×2 (08:43→20:07)
[2017-04-06] MEDS: ASPIRIN 81 MG CHEWABLE TABLET PO SCH (08:43)
[2017-04-06 10:47] VITALS: BP 118/49
[2017-04-06 13:31] LABS: CALCIUM, TOTAL 8.2 mg/dL (8.8-10.5); CREATININE 2.11 mg/dL (0.60-1.30); POTASSIUM 3.2 mmol/L (3.5-5.1)
[2017-04-06] MEDS: POTASSIUM CHL 10 MEQ/WATER 50 ML IV SCH ×4 (14:02→19:51)
[2017-04-06 15:32] VITALS: BP 115/54
[2017-04-06] MEDS: SIMVASTATIN 20 MG TABLET PO SCH (20:07)
[2017-04-06 20:25] VITALS: BP 144/77
[2017-04-07] VITALS (7 sets, daily range): BP systolic 111–137; BP diastolic 53–74
[2017-04-07] MEDS: DEXTROSE 5%-WATER 1,000 ML IV SCH ×2 (04:17→15:48)
[2017-04-07] MEDS: PIPERACILLIN/TAZO 3.375 GM/D5W 50 ML IV SCH ×4 (04:17→23:29)
[2017-04-07 06:19] LABS: CALCIUM, TOTAL 8.3 mg/dL (8.8-10.5); CREATININE 1.89 mg/dL (0.60-1.30); POTASSIUM 3.4 mmol/L (3.5-5.1)
[2017-04-07] MEDS: AMIODARONE HCL 200 MG TABLET PO SCH ×2 (08:34→20:07)
[2017-04-07] MEDS: ASPIRIN 81 MG CHEWABLE TABLET PO SCH (08:34)
[2017-04-07] MEDS: FAMOTIDINE 20 MG TABLET PO SCH (08:34)
[2017-04-07] MEDS: MetroNIDAZOLE 500 MG TABLET PO SCH ×3 (08:34→23:28)
[2017-04-07] MEDS: MECLIZINE HCL 25 MG TABLET PO SCH (08:34)
[2017-04-07] MEDS: HydrOXYzine HCL 25 MG TABLET PO SCH ×3 (08:34→20:07)
[2017-04-07] MEDS: ISOSORBIDE MONONITRATE 30 MG ER TABLET PO SCH (08:34)
[2017-04-07] MEDS: ALLOPURINOL 100 MG TABLET PO SCH (08:37)
[2017-04-07] MEDS: MUPIROCIN CALCIUM 2% 22 GM OINTMENT TP SCH ×2 (08:37→20:08)
[2017-04-07] MEDS: FERROUS SULFATE 325 MG EC TABLET PO SCH ×3 (08:37→17:40)
[2017-04-07] MEDS: SIMVASTATIN 20 MG TABLET PO SCH (20:07)
[2017-04-08] VITALS (7 sets, daily range): BP systolic 108–145; BP diastolic 50–97
[2017-04-08] MEDS: PIPERACILLIN/TAZO 3.375 GM/D5W 50 ML IV SCH ×4 (05:45→23:31)
[2017-04-08] MEDS: DEXTROSE 5%-WATER 1,000 ML IV SCH ×2 (05:46→15:46)
[2017-04-08 07:04] LABS: CALCIUM, TOTAL 8.3 mg/dL (8.8-10.5); CREATININE 1.6 mg/dL (0.60-1.30); POTASSIUM 3.2 mmol/L (3.5-5.1)
[2017-04-08] MEDS: ALLOPURINOL 100 MG TABLET PO SCH (09:27)
[2017-04-08] MEDS: ISOSORBIDE MONONITRATE 30 MG ER TABLET PO SCH (09:27)
[2017-04-08] MEDS: MetroNIDAZOLE 500 MG TABLET PO SCH ×3 (09:27→23:31)
[2017-04-08] MEDS: HydrOXYzine HCL 25 MG TABLET PO SCH ×3 (09:27→20:39)
[2017-04-08] MEDS: MECLIZINE HCL 25 MG TABLET PO SCH (09:27)
[2017-04-08] MEDS: FERROUS SULFATE 325 MG EC TABLET PO SCH ×3 (09:27→17:22)
[2017-04-08] MEDS: MUPIROCIN CALCIUM 2% 22 GM OINTMENT TP SCH ×2 (09:28→20:39)
[2017-04-08] MEDS: AMIODARONE HCL 200 MG TABLET PO SCH ×2 (09:28→20:39)
[2017-04-08] MEDS: ASPIRIN 81 MG CHEWABLE TABLET PO SCH (09:28)
[2017-04-08] MEDS: FAMOTIDINE 20 MG TABLET PO SCH (09:32)
[2017-04-08] MEDS: POTASSIUM CHLORIDE 20 MEQ ER TABLET PO PRN (12:42)
[2017-04-08] MEDS: SIMVASTATIN 20 MG TABLET PO SCH (20:39)
[2017-04-09] MEDS: DEXTROSE 5%-WATER 1,000 ML IV SCH ×2 (01:31→13:39)
[2017-04-09 04:41] VITALS: BP 139/62
[2017-04-09] MEDS: PIPERACILLIN/TAZO 3.375 GM/D5W 50 ML IV SCH ×3 (06:20→17:09)
[2017-04-09 07:41] VITALS: BP 126/62
[2017-04-09] MEDS: FERROUS SULFATE 325 MG EC TABLET PO SCH ×3 (08:15→17:41)
[2017-04-09] MEDS: MetroNIDAZOLE 500 MG TABLET PO SCH ×2 (08:15→16:14)
[2017-04-09] MEDS: ISOSORBIDE MONONITRATE 30 MG ER TABLET PO SCH (08:16)
[2017-04-09] MEDS: AMIODARONE HCL 200 MG TABLET PO SCH (08:16)
[2017-04-09] MEDS: ALLOPURINOL 100 MG TABLET PO SCH (08:16)
[2017-04-09] MEDS: FAMOTIDINE 20 MG TABLET PO SCH (08:16)
[2017-04-09] MEDS: MUPIROCIN CALCIUM 2% 22 GM OINTMENT TP SCH (08:17)
[2017-04-09] MEDS: MECLIZINE HCL 25 MG TABLET PO SCH (08:17)
[2017-04-09] MEDS: ASPIRIN 81 MG CHEWABLE TABLET PO SCH (08:17)
[2017-04-09] MEDS: HydrOXYzine HCL 25 MG TABLET PO SCH ×2 (08:17→16:14)
[2017-04-09 08:34] LABS: CALCIUM, TOTAL 8.1 mg/dL (8.8-10.5); CREATININE 1.68 mg/dL (0.60-1.30); POTASSIUM 3.3 mmol/L (3.5-5.1)
[2017-04-09] MEDS: POTASSIUM CHLORIDE 20 MEQ ER TABLET PO PRN (09:30)
[2017-04-09] MEDS ORDERED: SODIUM CHLORIDE 0.9% 100 ML ONE (12:05)
[2017-04-09 12:12] VITALS: BP 124/64
[2017-04-09] MEDS: POTASSIUM CHL 10 MEQ/WATER 50 ML IV PRN ×3 (12:21→15:55)
[2017-04-09] MEDS ORDERED: HYDR-309 PO (13:17)
[2017-04-09] MEDS ORDERED: AUD NEB (13:21)
[2017-04-09] MEDS ORDERED: IPRNEB IH (13:22)
[2017-04-09] MEDS ORDERED: MUPI1OIN4 NS (13:26)
[2017-04-09 16:10] VITALS: BP 122/63
== END 2017-04-09 18:40 | DRG 871 ==
LOC: EMS 15:22 → 5S 20:30
PROVIDERS: ADMIT Family Medicine; ATTEND Family Medicine
DX: A41.9 Sepsis, unspecified organism (principal); J18.9 Pneumonia, unspecified organism; I21.4 Non-ST elevation (NSTEMI) myocardial infarction; N17.0 Acute kidney failure with tubular necrosis; E43 Unspecified severe protein-calorie malnutrition; G93.41 Metabolic encephalopathy; I13.0 Hypertensive heart and chronic kidney disease with heart failure and stage 1 through stage 4 chronic kidney disease, or unspecified chronic kidney disease; I48.0 Paroxysmal atrial fibrillation; E87.0 Hyperosmolality and hypernatremia; N18.4 Chronic kidney disease, stage 4 (severe); I50.22 Chronic systolic (congestive) heart failure; E87.1 Hypo-osmolality and hyponatremia; R64 Cachexia; E86.0 Dehydration; E78.5 Hyperlipidemia, unspecified; E87.6 Hypokalemia; I25.10 Atherosclerotic heart disease of native coronary artery without angina pectoris; K21.9 Gastro-esophageal reflux disease without esophagitis; M10.9 Gout, unspecified; Z91.013 Allergy to seafood; Z22.322 Carrier or suspected carrier of Methicillin resistant Staphylococcus aureus
CPT/HCPCS: 82962; 83036; 83605; 83735; 83930; 84132; 84295; 87040; 87081; 92610; 93005; 93306; 94640; 96365; 96368; 97110; 97116; 97162; 97530; 99285; J0131; J2543; J3480; J7030; J7050; J7060

== ENCOUNTER 2017-04-12 19:27 | Inpatient (IN) | payer MEDICARE, MEDICAID ==
[~2017-04-12] VITALS: Ht 172.7 cm; Wt 62.4 kg
[~2017-04-12 19:27] MED LIST changes: -APIX5TAB PO; +AUD NEB; -FURO40 PO; -INSNOV SQ; +IPRNEB IH; -METR500 PO; +MUPI1OIN4 NS
[2017-04-12] MEDS ORDERED: ASCO500 PO (19:36)
[2017-04-12] MEDS ORDERED: FERR-89 PO (19:36)
[2017-04-12] MEDS ORDERED: ZINC220 PO (19:36)
[2017-04-12] MEDS ORDERED: SENN-175 PO (19:36)
[2017-04-12] MEDS ORDERED: SODIUM CHLORIDE 0.9% 1,000 ML IV ONE ×3 (19:45→21:30)
[2017-04-12] MEDS ORDERED: ACETAMINOPHEN 1000 MG/ISO-OSM 100 ML IV ONE (19:45)
[2017-04-12] MEDS ORDERED: 0.9% SODIUM CHLORIDE 10 ML SYRINGE IVP PRN ×2 (19:45→21:30)
[2017-04-12 20:05] LABS: BASOPHILS % (AUTO) 0.2 % (0.0-2.0); EOSINOPHILS % (AUTO) 0.3 % (1.0-6.0); HEMATOCRIT 28.7 % (41-53); HEMOGLOBIN 9.8 g/dL (13.5-17.5); LYMPHOCYTES # (AUTO) 0.2 K/uL (1.0-4.8); LYMPHOCYTES % (AUTO) 8.8 % (22.0-44.0); MEAN CORPUSCULAR HEMOGLOBIN 30.9 pg (26.0-34.0); MEAN CORPUSCULAR HGB CONC 34.1 G/dL (31.0-37.0); MEAN CORPUSCULAR VOLUME 91 fL (80-100); MONOCYTES % (AUTO) 0.1 % (2.0-9.0); NEUTROPHILS # (AUTO) 1.7 K/uL (1.8-7.7); PLATELET COUNT (AUTO) 168 K/uL (150-450); RED BLOOD CELL COUNT(AUTO) 3.16 MIL/uL (4.50-5.90); RED CELL DISTRIBUTION WIDTH 18.3 % (11.5-14.5); WHITE BLOOD COUNT (AUTO) 1.9 K/uL (4.5-11.0)
[2017-04-12 20:06] LABS: ABG A-A DIFF O2 146.4 mmHg (10-20.0); ABG BASE EXCESS -7.3 mmol/L (-2.0-3.0); ABG HCO3 19.5 mmol/L (22.0-26.0); ABG PCO2 24 mmHg (35-45); ABG PH 7.449 (7.35-7.450); ALLEN TEST, BLOOD GAS POSITIVE; TEMPERATURE, FAHRENHEIT, BG 103.4 FAHREN (96.0-98.6)
[2017-04-12 20:13] LABS: NEUTROPHILS % (AUTO) 90.6 % (40.0-70.0)
[2017-04-12] MEDS ORDERED: MethylPREDNISolone SOD SUCC 125 MG/2 ML VIAL IVP ONE (20:15)
[2017-04-12] MEDS ORDERED: PIPERACILLIN/TAZO 3.375 GM/D5W 50 ML IV ONE (20:15)
[2017-04-12] MEDS ORDERED: IPRATROPIUM BROMIDE 0.5 MG/2.5 ML NEB SOLUTION NEB ONE (20:15)
[2017-04-12] MEDS ORDERED: VANCOMYCIN HCL 1 GM/D5% WATER 200 ML IV ONE (20:15)
[2017-04-12] MEDS ORDERED: ALBUTEROL SULFATE 5 MG/ML 20 ML NEB SOLN [BULK] NEB ONE (20:15)
[2017-04-12 20:16] LABS: ANION GAP 15 mmol/L (8-16); CALCIUM, TOTAL 8.3 mg/dL (8.8-10.5); CARBON DIOXIDE 20 mmol/L (22-29); CHLORIDE 112 mmol/L (98-107); GLOMERULAR FILTR. RATE CALC 21 mL/min (>60); POTASSIUM 3.2 mmol/L (3.5-5.1); SODIUM SERUM 147 mmol/L (136-145); UREA NITROGEN, BLOOD 25 mg/dL (7-18)
[2017-04-12 20:20] LABS: INR 1.3 (0.9-1.1); PROTHROMBIN TIME 13.7 SEC (9.4-11.6)
[2017-04-12 20:24] LABS: APPEARANCE,URINE TURBID (CLEAR); GLUCOSE, URINE (UA) NEGATIVE (NEGATIVE); KETONES,URINE 40 mg/dL (NEGATIVE); LEUKOCYTE ESTERASE ,URINE LARGE (NEGATIVE); OCCULT BLOOD,URINE LARGE (NEGATIVE); PROTEIN,URINE SEE CONFIRM (NEGATIVE)
[2017-04-12 20:39] LABS: ADD UA MICROSCOPIC YES
[2017-04-12 20:40] LABS: SULFOSALICYLIC ACID,URINE 3+ (Negative)
[2017-04-12 20:41] LABS: RBC,URINE Full Field /HPF (0-2); SQUAMOUS EPITHELIAL CELL,UR Few /LPF (None Seen)
[2017-04-12 20:42] LABS: ALANINE AMINOTRANSFERASE 52 U/L (12-78); ALBUMIN 1.7 g/dL (3.4-5.0); ASPARTATE AMINOTRANSFERASE 48 U/L (15-37); BILIRUBIN,TOTAL 1.7 mg/dL (0.1-1.0); CREATINE KINASE MB 1.3 ng/mL (0-5); CREATINE KINASE, TOTAL 100 U/L (39-308); TOTAL PROTEIN, SERUM 5.5 g/dL (6.4-8.2)
[2017-04-12 20:51] LABS: B-TYPE NATRIURETIC PEPTIDE 411 pg/mL (0-100)
[2017-04-12 20:51] LABS: INFLUENZA TYPE B NEGATIVE FOR TYPE B (NEGATIVE)
[2017-04-12 20:56] LABS: LACTIC ACID 6.4 mmol/L (0.4-2.0)
[2017-04-12] MEDS ORDERED: 0.9% SODIUM CHLORIDE 5 ML NEB SOLUTION NEB ONE (20:56)
[2017-04-12 21:19] LABS: RBC MORPHOLOGY COMMENT ABNORMAL RBC MORPH
[2017-04-12 21:23] LABS: PROCALCITONIN (PCT) 15.26 ng/mL (<0.50)
[2017-04-12] MEDS ORDERED: POTASSIUM CHL 10 MEQ/WATER 50 ML IV ONE (21:30)
[2017-04-12] MEDS ORDERED: ONDANSETRON HCL 4 MG/2 ML VIAL IVP PRN (21:30)
[2017-04-12] MEDS ORDERED: ACETAMINOPHEN 325 MG TABLET PO PRN (21:30)
[2017-04-12 21:56] LABS: REFLEX LACTIC ACID? YES YES
[2017-04-12] MEDS ORDERED: NOREPINEPHRINE 4 MG/D5%-WATER 250 ML IV ONE (22:05)
[2017-04-12] MEDS ORDERED: NOREPINEPHRINE 4 MG/D5%-WATER 250 ML IV PRN (22:12)
[2017-04-12] MEDS: IPRATROPIUM BROMIDE 0.5 MG/2.5 ML NEB SOLUTION NEB SCH (22:13)
[2017-04-12] MEDS: ALBUTEROL SULFATE 2.5 MG/0.5 ML NEB SOLUTION NEB SCH (22:14)
[2017-04-12] MEDS ORDERED: SODIUM CHLORIDE 0.9% 500 ML IV ONE (22:30)
[2017-04-13] MEDS: ALBUTEROL SULFATE 2.5 MG/0.5 ML NEB SOLUTION NEB SCH ×6 (02:31→23:27)
[2017-04-13] MEDS: IPRATROPIUM BROMIDE 0.5 MG/2.5 ML NEB SOLUTION NEB SCH ×5 (02:31→23:27)
[2017-04-13 05:14] LABS: HEMATOCRIT 25.9 % (41-53); HEMOGLOBIN 8.7 g/dL (13.5-17.5); MEAN CORPUSCULAR HEMOGLOBIN 30.4 pg (26.0-34.0); MEAN CORPUSCULAR HGB CONC 33.4 G/dL (31.0-37.0); MEAN CORPUSCULAR VOLUME 91 fL (80-100); PLATELET COUNT (AUTO) 163 K/uL (150-450); RED BLOOD CELL COUNT(AUTO) 2.86 MIL/uL (4.50-5.90)
[2017-04-13 05:29] LABS: ALBUMIN 1.5 g/dL (3.4-5.0); BILIRUBIN,TOTAL 1.9 mg/dL (0.1-1.0); CALCIUM, TOTAL 7.5 mg/dL (8.8-10.5); CREATININE 2.59 mg/dL (0.60-1.30); POTASSIUM 3.6 mmol/L (3.5-5.1); TOTAL PROTEIN, SERUM 5.2 g/dL (6.4-8.2)
[2017-04-13 05:51] LABS: BAND NEUTROPHILS % (MANUAL) 30 % (1-5); LYMPHOCYTES % (MANUAL) 5 % (22-44); RBC MORPHOLOGY COMMENT ABNORMAL RBC MORPH; TOTAL CELLS COUNTED 100
[2017-04-13 08:31] LABS: ABG A-A DIFF O2 94.8 mmHg (10-20.0); ABG BASE EXCESS -7.5 mmol/L (-2.0-3.0); ABG HCO3 19.2 mmol/L (22.0-26.0); ABG OXYHEMOGLOBIN 95.8 % (94.0-100.0); ABG PCO2 28 mmHg (35-45); ABG PH 7.408 (7.35-7.450); TEMPERATURE, FAHRENHEIT, BG 98.6 FAHREN (96.0-98.6)
[2017-04-13 08:33] LABS: ALLEN TEST, BLOOD GAS Positive
[2017-04-13] MEDS ORDERED: SODIUM BICARBONATE [ADULT] 8.4% 50 MEQ/50 ML SYRINGE IVP ONE (08:45)
[2017-04-13] MEDS ORDERED: IPRATROPIUM BROMIDE 0.5 MG/2.5 ML NEB SOLUTION NEB ONE (10:45)
[2017-04-13] MEDS ORDERED: ALBUTEROL SULFATE 2.5 MG/0.5 ML NEB SOLUTION NEB ONE (10:45)
[2017-04-13] MEDS ORDERED: ACETAMINOPHEN 650 MG RECTAL SUPPOSITORY PR ONE (16:00)
[2017-04-13] MEDS ORDERED: VANCOMYCIN HCL 1 GM/D5% WATER 200 ML IV PRN (16:15)
[2017-04-13] MEDS: DEXTROSE 5%-0.45% SODIUM CHL 1,000 ML IV SCH (16:16)
[2017-04-13] MEDS: PIPERACILLIN SODIUM/TAZOBACTAM 2.25 GM in DEXTROSE 5%-WATER 50 ML IV SCH ×2 (16:16→23:05)
[2017-04-13] MEDS ORDERED: VANCOMYCIN HCL 1 GM/D5% WATER 200 ML IV ONE (17:00)
[2017-04-13 21:15] VITALS: BP 130/58
[2017-04-14] MEDS ORDERED: WATER FOR IRRIGATION,STERILE 1000 ML SOLUTION BOTTLE ONE (02:42)
[2017-04-14] MEDS: ALBUTEROL SULFATE 2.5 MG/0.5 ML NEB SOLUTION NEB SCH ×6 (03:22→23:22)
[2017-04-14] MEDS: IPRATROPIUM BROMIDE 0.5 MG/2.5 ML NEB SOLUTION NEB SCH ×6 (03:22→23:22)
[2017-04-14] MEDS: PIPERACILLIN SODIUM/TAZOBACTAM 2.25 GM in DEXTROSE 5%-WATER 50 ML IV SCH ×4 (04:19→21:04)
[2017-04-14] MEDS: DEXTROSE 5%-0.45% SODIUM CHL 1,000 ML IV SCH ×2 (04:20→19:05)
[2017-04-14 06:13] VITALS: BP 83/50
[2017-04-14 06:47] LABS: ANION GAP 11 mmol/L (8-16); CALCIUM, TOTAL 7.3 mg/dL (8.8-10.5); CARBON DIOXIDE 21 mmol/L (22-29); CHLORIDE 113 mmol/L (98-107); CREATININE 2.33 mg/dL (0.60-1.30); GLOMERULAR FILTR. RATE CALC 27 mL/min (>60); POTASSIUM 3.5 mmol/L (3.5-5.1); SODIUM SERUM 145 mmol/L (136-145); UREA NITROGEN, BLOOD 34 mg/dL (7-18)
[2017-04-14 07:06] LABS: LACTIC ACID 2.5 mmol/L (0.4-2.0)
[2017-04-14 08:00] LABS: REFLEX LACTIC ACID? YES YES
[2017-04-14 08:05] VITALS: BP 84/44
[2017-04-14 08:56] LABS: HEMATOCRIT 24.3 % (41-53); HEMOGLOBIN 8.2 g/dL (13.5-17.5); MEAN CORPUSCULAR HEMOGLOBIN 31.1 pg (26.0-34.0); MEAN CORPUSCULAR HGB CONC 33.6 G/dL (31.0-37.0); MEAN CORPUSCULAR VOLUME 93 fL (80-100); PLATELET COUNT (AUTO) 93 K/uL (150-450); RED BLOOD CELL COUNT(AUTO) 2.63 MIL/uL (4.50-5.90); RED CELL DISTRIBUTION WIDTH 19.8 % (11.5-14.5); WHITE BLOOD COUNT (AUTO) 19.3 K/uL (4.5-11.0)
[2017-04-14] MEDS ORDERED: VANCOMYCIN HCL 1 GM/D5% WATER 200 ML IV ONE (11:00)
[2017-04-14 11:48] VITALS: BP 84/46
[2017-04-14 12:00] LABS: ABG A-A DIFF O2 72.8 mmHg (10-20.0); ABG BASE EXCESS -4.3 mmol/L (-2.0-3.0); ABG HCO3 21.3 mmol/L (22.0-26.0); ABG OXYHEMOGLOBIN 94.1 % (94.0-100.0); ABG PCO2 32 mmHg (35-45); ABG PH 7.415 (7.35-7.450); TEMPERATURE, FAHRENHEIT, BG 97.8 FAHREN (96.0-98.6)
[2017-04-14 12:02] LABS: ALLEN TEST, BLOOD GAS Positive
[2017-04-14 12:11] LABS: BAND NEUTROPHILS % (MANUAL) 17 % (1-5); TOTAL CELLS COUNTED 100
[2017-04-14 12:12] LABS: RBC MORPHOLOGY COMMENT ABNORMAL R
[2017-04-14 19:24] VITALS: BP 102/62
[2017-04-14 23:43] VITALS: BP 94/48
[2017-04-15] MEDS: PIPERACILLIN SODIUM/TAZOBACTAM 2.25 GM in DEXTROSE 5%-WATER 50 ML IV SCH (02:35)
[2017-04-15] MEDS: ALBUTEROL SULFATE 2.5 MG/0.5 ML NEB SOLUTION NEB SCH ×6 (03:19→23:13)
[2017-04-15] MEDS: IPRATROPIUM BROMIDE 0.5 MG/2.5 ML NEB SOLUTION NEB SCH ×6 (03:19→23:13)
[2017-04-15 05:03] VITALS: BP 94/55
[2017-04-15 07:20] VITALS: BP 98/57
[2017-04-15 11:57] VITALS: BP 113/64
[2017-04-15 15:36] VITALS: BP 106/60
[2017-04-15 19:31] VITALS: BP 107/63
[2017-04-15 23:06] VITALS: BP 146/69
[2017-04-16] MEDS: ALBUTEROL SULFATE 2.5 MG/0.5 ML NEB SOLUTION NEB SCH ×2 (03:20→07:45)
[2017-04-16] MEDS: IPRATROPIUM BROMIDE 0.5 MG/2.5 ML NEB SOLUTION NEB SCH ×2 (03:20→07:45)
[2017-04-16 04:22] VITALS: BP 120/73
[2017-04-16 07:44] VITALS: BP 138/82
[2017-04-16] MEDS ORDERED: OXYGEN THERAPY IH SCH (08:00)
[2017-04-16] MEDS ORDERED: IPRA3AMP4 NEB (10:47)
[2017-04-16 11:28] VITALS: BP 132/72
[2017-04-16] MEDS ORDERED: MORPHINE SULFATE 2 MG/ML SYRINGE IVP ONE (14:00)
== END 2017-04-16 16:45 | DRG 871 ==
LOC: EMS 19:29 → 6N 04-13 20:49
PROVIDERS: ADMIT Internal Medicine; ATTEND Internal Medicine
DX: A41.9 Sepsis, unspecified organism (principal); R65.21 Severe sepsis with septic shock; J69.0 Pneumonitis due to inhalation of food and vomit; J96.00 Acute respiratory failure, unspecified whether with hypoxia or hypercapnia; E43 Unspecified severe protein-calorie malnutrition; G93.40 Encephalopathy, unspecified; N17.9 Acute kidney failure, unspecified; I71.2 Thoracic aortic aneurysm, without rupture; T17.990A Other foreign object in respiratory tract, part unspecified in causing asphyxiation, initial encounter; E87.2 Acidosis; N39.0 Urinary tract infection, site not specified; N18.9 Chronic kidney disease, unspecified; D63.8 Anemia in other chronic diseases classified elsewhere; E78.5 Hyperlipidemia, unspecified; I12.9 Hypertensive chronic kidney disease with stage 1 through stage 4 chronic kidney disease, or unspecified chronic kidney disease; I25.10 Atherosclerotic heart disease of native coronary artery without angina pectoris; I44.0 Atrioventricular block, first degree; M10.9 Gout, unspecified; B96.20 Unspecified Escherichia coli [E. coli] as the cause of diseases classified elsewhere; Z66 Do not resuscitate; Z87.01 Personal history of pneumonia (recurrent); Z90.49 Acquired absence of other specified parts of digestive tract; Z95.5 Presence of coronary angioplasty implant and graft; Z91.013 Allergy to seafood
CPT/HCPCS: 36555; 36556; 51702; 70450; 71250; 82308; 82805; 83605; 83735; 84145; 87040; 87081; 87086; 87804; 93005; 94640; 94644; 96365; 96366; 96367; 96375; 99291; J0131; J2270; J2543; J2930; J3370; J3480; J3490; J7030; J7060

== ENCOUNTER 2017-04-17 17:29 | Inpatient (IN) | payer MEDICARE, MEDICAID ==
[~2017-04-17] VITALS: Ht 175.3 cm; Wt 64.0 kg
[~2017-04-17 17:29] MED LIST changes: +ASCO500 PO; +FERR-89 PO; -FERR325T22 PO; -HYDR-309 PO; +IPRA3AMP4 NEB; -IPRNEB IH; -MUPI1OIN4 NS; -PANT40TA25 PO; +SENN-175 PO; +ZINC220 PO
[2017-04-17 19:55] LABS: BASOPHILS # (AUTO) 0.04 K/uL (0.00-0.20); BASOPHILS % (AUTO) 0.8 % (0.0-2.0); EOSINOPHILS # (AUTO) 0.01 K/uL (0.00-0.70); EOSINOPHILS % (AUTO) 0.24 % (1.0-6.0); HEMOGLOBIN 9.7 g/dL (13.5-17.5); LYMPHOCYTES # (AUTO) 0.5 K/uL (1.0-4.8); LYMPHOCYTES % (AUTO) 11.2 % (22.0-44.0); MEAN CORPUSCULAR HEMOGLOBIN 30.8 pg (26.0-34.0); MEAN CORPUSCULAR HGB CONC 33.6 G/dL (31.0-37.0); MEAN CORPUSCULAR VOLUME 92 fL (80-100); MONOCYTES # (AUTO) 0.2 K/uL (0.1-1.0); MONOCYTES % (AUTO) 3.9 % (2.0-9.0); NEUTROPHILS % (AUTO) 83.9 % (40.0-70.0); PLATELET COUNT (AUTO) 87 K/uL (150-450); RED BLOOD CELL COUNT(AUTO) 3.16 MIL/uL (4.50-5.90); RED CELL DISTRIBUTION WIDTH 19.3 % (11.5-14.5)
[2017-04-17 20:14] LABS: CALCIUM, TOTAL 8.9 mg/dL (8.8-10.5); CREATININE 1.7 mg/dL (0.60-1.30); POTASSIUM 4.2 mmol/L (3.5-5.1)
[2017-04-17 20:20] LABS: ALBUMIN 1.4 g/dL (3.4-5.0); BILIRUBIN,TOTAL 4.8 mg/dL (0.1-1.0); TOTAL PROTEIN, SERUM 5.6 g/dL (6.4-8.2)
[2017-04-17] MEDS ORDERED: 0.9% SODIUM CHLORIDE 10 ML SYRINGE IVP PRN (20:30)
[2017-04-17] MEDS ORDERED: ACETAMINOPHEN 325 MG TABLET PO PRN (20:30)
[2017-04-17 20:46] LABS: PLATELET MORPHOLOGY COMMENT GIANT PLTS PRESENT
[2017-04-17 22:06] VITALS: BP 124/79
[2017-04-18] VITALS (7 sets, daily range): BP systolic 101–153; BP diastolic 43–95
[2017-04-18] MEDS ORDERED: IPRATROPIUM BROMIDE 0.5 MG/2.5 ML NEB SOLUTION NEB ONE (19:56)
[2017-04-18] MEDS ORDERED: SODIUM CHLORIDE 3% 15 ML NEB SOLUTION NEB ONE (19:56)
[2017-04-18] MEDS ORDERED: 0.9% SODIUM CHLORIDE 5 ML NEB SOLUTION NEB ONE (20:34)
[2017-04-19 04:44] VITALS: BP 150/90
[2017-04-19] MEDS ORDERED: SODIUM CHLORIDE 3% 15 ML NEB SOLUTION NEB ONE (04:56)
[2017-04-19 07:45] VITALS: BP 128/80
[2017-04-19 11:30] VITALS: BP 126/80
[2017-04-19 15:38] VITALS: BP 132/79
[2017-04-19] MEDS ORDERED: PIPERACILLIN/TAZO 3.375 GM/D5W 50 ML IV SCH (19:00)
[2017-04-19 19:44] VITALS: BP 135/83
[2017-04-19] MEDS: PIPERACILLIN SODIUM/TAZOBACTAM 2.25 GM in DEXTROSE 5%-WATER 50 ML IV SCH (22:06)
[2017-04-19] MEDS: DEXTROSE 5%-0.9% SODIUM CHL 1,000 ML IV SCH (22:07)
[2017-04-20] VITALS (7 sets, daily range): BP systolic 13–132; BP diastolic 65–98
[2017-04-20] MEDS: PIPERACILLIN SODIUM/TAZOBACTAM 2.25 GM in DEXTROSE 5%-WATER 50 ML IV SCH ×3 (03:28→14:58)
[2017-04-20] MEDS ORDERED: ACETAMINOPHEN 650 MG RECTAL SUPPOSITORY PR PRN (13:45)
[2017-04-20] MEDS: DEXTROSE 5%-0.9% SODIUM CHL 1,000 ML IV SCH (14:59)
[2017-04-20] MEDS: CefoTEtan DISOD 1 GM/DEXTROSE 50 ML IV SCH (18:55)
[2017-04-21 05:20] VITALS: BP 95/70
[2017-04-21] MEDS: CefoTEtan DISOD 1 GM/DEXTROSE 50 ML IV SCH ×2 (05:22→17:38)
[2017-04-21 07:45] VITALS: BP 113/81
[2017-04-21 11:36] VITALS: BP 135/78
[2017-04-21 15:42] VITALS: BP 121/72
[2017-04-21 19:30] VITALS: BP 134/76
[2017-04-21 23:30] VITALS: BP 116/63
[2017-04-22 04:56] VITALS: BP 99/62
[2017-04-22] MEDS: CefoTEtan DISOD 1 GM/DEXTROSE 50 ML IV SCH ×2 (05:24→18:25)
[2017-04-22 08:00] VITALS: BP 114/66
[2017-04-22] MEDS: DEXTROSE 5%-0.9% SODIUM CHL 1,000 ML IV SCH (08:56)
[2017-04-22 11:32] VITALS: BP 122/67
[2017-04-22 15:55] VITALS: BP 127/71
[2017-04-22 20:16] VITALS: BP 114/58
[2017-04-23] VITALS (7 sets, daily range): BP systolic 96–120; BP diastolic 59–77
[2017-04-23] MEDS: CefoTEtan DISOD 1 GM/DEXTROSE 50 ML IV SCH ×2 (06:00→18:22)
[2017-04-23] MEDS ORDERED: SODIUM CHLORIDE 3% 15 ML NEB SOLUTION NEB ONE ×2 (09:59→20:50)
[2017-04-23] MEDS: DEXTROSE 5%-0.9% SODIUM CHL 1,000 ML IV SCH (20:41)
[2017-04-24 05:27] VITALS: BP 101/63
[2017-04-24] MEDS: CefoTEtan DISOD 1 GM/DEXTROSE 50 ML IV SCH ×2 (06:53→17:02)
[2017-04-24 08:34] VITALS: BP 109/55
[2017-04-24 11:11] VITALS: BP 106/62
[2017-04-24 15:40] VITALS: BP 102/60
[2017-04-24] MEDS: DEXTROSE 5%-0.9% SODIUM CHL 1,000 ML IV SCH (17:05)
[2017-04-24 20:17] VITALS: BP 101/55
== END 2017-04-25 00:30 | disposition expired | DRG 70 ==
LOC: EMS 17:30 → 6N 20:49
PROVIDERS: ADMIT Internal Medicine; ATTEND Internal Medicine
DX: G93.40 Encephalopathy, unspecified (principal); A41.9 Sepsis, unspecified organism; J96.00 Acute respiratory failure, unspecified whether with hypoxia or hypercapnia; N17.9 Acute kidney failure, unspecified; A15.0 Tuberculosis of lung; I25.10 Atherosclerotic heart disease of native coronary artery without angina pectoris; B96.20 Unspecified Escherichia coli [E. coli] as the cause of diseases classified elsewhere; N18.9 Chronic kidney disease, unspecified; Z66 Do not resuscitate; E78.00 Pure hypercholesterolemia, unspecified; E78.5 Hyperlipidemia, unspecified; I12.9 Hypertensive chronic kidney disease with stage 1 through stage 4 chronic kidney disease, or unspecified chronic kidney disease; M10.9 Gout, unspecified; Z51.5 Encounter for palliative care; B96.89 Other specified bacterial agents as the cause of diseases classified elsewhere; Z16.24 Resistance to multiple antibiotics; Z87.01 Personal history of pneumonia (recurrent); Z90.49 Acquired absence of other specified parts of digestive tract; Z95.5 Presence of coronary angioplasty implant and graft; Z91.013 Allergy to seafood; Z91.018 Allergy to other foods; Z79.82 Long term (current) use of aspirin; Z79.899 Other long term (current) drug therapy
CPT/HCPCS: 86480; 87015; 87040; 87081; 87556; 94640; 94799; 99285; J2543; J3490; J7042; J7060